=== PATIENT | female | born 1965 | race Caucasian/White ===

== ENCOUNTER 2019-10-25 20:07 | Inpatient (IN) | payer SELFPAY ==
[2019-10-25] MEDS ORDERED: methylPREDNISolone Sod Succ/PF 125 MG/2 ML VIAL ONE (21:50)
[2019-10-26 00:03] LABS: Troponin I 0.038 ng/mL (< 0.028)
[2019-10-26 00:14] VITALS: BMI 43.2
[2019-10-26] MEDS ORDERED: Lactated Ringer's 1,000 ML IV SCH (00:30)
[2019-10-26] MEDS ORDERED: Labetalol HCl 100 MG/20 ML VIAL SLOW IVP PRN (02:29)
[2019-10-26] MEDS ORDERED: Calcium Carbonate 500 MG ChewTAB PO PRN (02:29)
[2019-10-26] MEDS ORDERED: Ondansetron ODT 4 MG TAB PO PRN (02:29)
[2019-10-26] MEDS ORDERED: Acetaminophen 500 MG TAB PO PRN (02:29)
--- NOTE | 2019-10-26 03:15 | HP ---
PRIMARY CARE PROVIDER: [facility] [place], [place]. CHIEF COMPLAINT: Palpitations and shortness of breath. HISTORY OF PRESENT ILLNESS: This is a 54-year-old female, who initially presented to initially presented to [facility] complaining of several-day history of cough, congestion, shortness of breath and palpitations. The patient denied any recent trauma, injury, exposure history, documented fever, chills or cough. The patient felt her heart racing with palpitations and became concerned with associated shortness of breath. The patient did admit to some chest pain rated 4/10 without radiation to the jaw or left arm. In the emergency room, the patient underwent general evaluation including telemetry monitoring showing atrial fibrillation with rapid ventricular response. The patient received diltiazem IV push in addition to diltiazem infusion and Lovenox 1 mg/kg. The patient converted to sinus mechanism with diltiazem treatment with current sinus mechanism noted. The patient was also noted with mild low-grade fever up to 100.2 degrees Fahrenheit. The patient received IV Levaquin and Solu-Medrol in addition to bronchodilator therapy with DuoNebs. PAST MEDICAL HISTORY: 1. Chronic obstructive pulmonary disease. 2. Tobacco abuse. 3. Hypertension. 4. History of TIA. 5. Hepatitis B. 6. Hepatitis C, treated. 7. Morbid obesity. PAST SURGICAL HISTORY: 1. Status post liver biopsy x3. 2. Status post right breast debridement after spider bite. 3. Status post hysterectomy. 4. Status post cardiac catheterization. PAST PSYCHIATRIC HISTORY: Anxiety, depression, PTSD and panic disorder. CURRENT MEDICATIONS: Albuterol 90 mcg inhaled q.6 hours p.r.n. ALLERGIES: NO KNOWN DRUG ALLERGIES. FAMILY HISTORY: Positive for hypertension and coronary artery disease. SOCIAL HISTORY: Resides in [place], [place] with her spouse. Accompanied by her daughter in the hospital. Remote tobacco use quitting less than 10 years prior to this evaluation. No alcohol or illicit drug use. Remote history of marijuana use. REVIEW OF SYSTEMS: CONSTITUTIONAL: Negative for weight loss or gain, ability to conduct usual activities. SKIN: Negative for rash, itching. EYES: Negative for double vision, pain. ENT/MOUTH: Negative for nose bleeding, neck stiffness, pain, tenderness. CARDIOVASCULAR: Negative for palpitations, dyspnea on exertion, orthopnea. RESPIRATORY: Negative for shortness of breath, wheezing, cough, hemoptysis, fever or night sweats. GASTROINTESTINAL: Negative for poor appetite, abdominal pain, heartburn, nausea, vomiting, constipation, or diarrhea. GENITOURINARY: Negative for urgency, frequency, dysuria, nocturia. MUSCULOSKELETAL: Negative for pain, swelling. NEUROLOGIC/PSYCHIATRIC: Negative for anxiety, depression. ALLERGY/IMMUNOLOGIC: Negative for skin rash, bleeding tendency. Otherwise negative except as stated per HPI. PHYSICAL EXAMINATION: VITAL SIGNS: On admission, blood pressure 142/63, pulse 55, respiratory rate 18, temperature 99.4 degrees Fahrenheit with a T-max of 100.2 degrees Fahrenheit. GENERAL APPEARANCE: This is a 54-year-old female, alert and oriented x3, pleasant, responsive, in no acute distress. HEENT: Pupils are equal, round, reactive to light and accommodation. Extraocular muscles are intact. No scleral icterus. No conjunctival injection. Nares patent. OP is clear. Teeth in fair repair. NECK: Supple. No cervical adenopathy. No thyromegaly. No carotid bruits. No JVD appreciated. Cervical spine with full active and passive range of motion. No meningeal signs noted. CHEST: Diminished breath sounds in the bases bilaterally. CARDIOVASCULAR: S1, S2 without noted murmur, rub, or gallop. ABDOMEN: Obese, soft, nontender, and nondistended. Bowel sounds are positive in all 4 quadrants. There is no hepatosplenomegaly. No abdominal bruits, no rebound or guarding appreciated. EXTREMITIES: Warm and dry with fair turgor. No clubbing, cyanosis, or asymmetric edema appreciated. Pulses palpable distally at the dorsalis pedis, posterior tibial, and popliteal arteries bilaterally. Capillary refill less than 2 seconds. NEUROLOGIC: Cranial nerves 2 through 12 are grossly intact. No focal or lateralizing signs appreciated. PERTINENT LABORATORY AND X-RAY FINDINGS: Sodium 139, potassium 4.5, chloride 104, CO2 of 21, BUN 20, creatinine 1.33, estimated GFR 42, glucose 305, calcium 9.5, creatine kinase 223. Troponin I ranged between 0.015 to 0.038. BNP 110, previously 58.5 on 06/23/2018. TSH 0.27. CBC showed a white blood cell count of 19.5, hemoglobin 12.8, hematocrit 39.8, platelet count 457 with 83% neutrophils. D-dimer less than 0.27. Influenza A and B antigen on 10/25/2019 negative. IMAGIN. Portable chest x-ray dated 10/25/2019 showed no acute cardiopulmonary process. 2. EKG dated 10/25/2019 shows sinus bradycardia with heart rates in the 50s. Normal R-wave progression noted in the precordial leads. Normal axis. No acute ST-T wave changes appreciated. ASSESSMENT/PLAN: 1. Paroxysmal atrial fibrillation with rapid ventricular response. Converted to sinus mechanism after treatment with diltiazem. Check 2D transthoracic echocardiogram for wall motion abnormality and to assess ejection fraction. Consult Cardiology Service for any further recommendations. Continue Lovenox 1 mg/kg subcutaneously q.12 hours. Check free T4 and magnesium level in the a.m. 2. Acute kidney [id number] kidney disease, stage 2. Avoid nephrotoxic agents and limit contrast exposure. 3. Continue intravenous normal saline. Encourage increased free water intake orally. 4. Chronic obstructive pulmonary disease, stable currently. No current evidence to suggest acute exacerbation. Continue albuterol nebulized solution q.4 hours p.r.n. oxygen as needed to maintain O2 saturation is greater than or equal to 90%. 5. Febrile episode, exact etiology unclear. Check urinalysis to rule out infectious process. Serial CBC monitoring. 6. Prophylaxis. Sequential compression devices while in bed. Pepcid 20 mg p.o. b.i.d. CODE STATUS: Full. Surrogate medical decision maker is the patient's spouse. In this dictation present coverage in. Job ID: [id number]
[2019-10-26 03:41] LABS: Anion Gap 14 mmol/L (10-20); BUN (Urea Nitrogen) 23 mg/dL (9.8-20.1); Calc. Creatinine Clearance 105 mL/min (70-130); Calcium 8.7 mg/dL (7.8-10.44); Carbon Dioxide 25 mmol/L (22-29); Chloride 101 mmol/L (98-107); Estimated GFR-MDRD 47; Glucose 369 mg/dL (70-105); Magnesium 2.1 mg/dL (1.6-2.6); Potassium 4.8 mmol/L (3.5-5.1); Sodium 135 mmol/L (136-145)
[2019-10-26 03:47] LABS: Band 5 % (5-11); Hemoglobin 12.2 g/dL (12.0-16.0); Lymphocytes 10 % (21-51); MDiff Complete? YES; Mean Corpuscular HGB CONC 33.8 g/dL (32.0-36.0); Mean Corpuscular Hemoglobin 31.5 pg (27.0-31.0); Mean Corpuscular Volume 93.3 fL (78.0-98.0); Mean Platelet Volume 8.9 fL (7.4-10.4); Monocytes 5 % (0-10); Neutrophil 80 % (42-75); Platelet Count 332 thou/uL (130-400); Platelet Morphology Comment Appears Adequate; RBC Distribution Width 12.3 % (11.5-14.5); RBC Morphology Normal; Red Blood Cell (RBC) Count 3.86 mill/uL (4.20-5.40); White Blood Cell (WBC) Count 15.4 thou/uL (4.8-10.8)
[2019-10-26 03:54] LABS: Troponin I 0.021 ng/mL (< 0.028)
[2019-10-26 06:01] LABS: Bacteria/HPF None Seen HPF (None Seen); Bilirubin Negative (Negative); Blood, Urine Trace (Negative); Clarity Clear (Clear); Glucose, Urine (Dipstick) Greater than 1000 mg/dL (Negative); Leukocyte Negative Leu/uL (Negative); Nitrite Negative (Negative); Protein, Urine (Dipstick) Negative (Neg-Trace); RBC/HPF 0-3 HPF (0-3); Squamous Epithelial 0-3 HPF (0-3); Urobilinogen Normal mg/dL (Less than 2); WBC/HPF None Seen HPF (0-3)
[2019-10-26] MEDS ORDERED: predniSONE 50 MG TAB PO SCH (08:00)
[2019-10-26] MEDS: Albuterol Sulfate 1.25 MG/3 ML NEB NEB SCH ×3 (08:17→22:55)
[2019-10-26] MEDS ORDERED: FLU VACC QS2019-20(6MOS UP)/PF 60 MCG/0.5 ML SYRINGE IM ONE (09:00)
[2019-10-26] MEDS ORDERED: Enoxaparin Sodium 100 MG/ML SYRINGE SC SCH (09:00)
[2019-10-26] MEDS ORDERED: Enoxaparin Sodium 30 MG/0.3 ML SYRINGE SC SCH (09:00)
[2019-10-26] MEDS: Aspirin 81 mg Enteric Coated Tablet PO SCH (09:18)
[2019-10-26] MEDS: Famotidine 20 MG TAB PO SCH ×2 (09:18→21:19)
[2019-10-26] MEDS: Ibuprofen 600 MG TAB PO PRN ×2 (09:54→21:19)
[2019-10-26] MEDS: Ondansetron PF 4 MG/2 ML Vial IVP PRN ×2 (09:54→18:04)
[2019-10-26] MEDS ORDERED: Ketorolac Tromethamine 30 MG/ML VIAL IVP SCH (13:57)
--- NOTE | 2019-10-26 15:50 | CON ---
DATE OF CONSULTATION: HISTORY OF PRESENT ILLNESS: A 54-year-old female presented to [facility] with a complaint of palpitations and shortness of breath that have been increasingly worse over the past few days. In the outside emergency department , she was found to be in atrial fibrillation with RVR. This resolved with diltiazem and she has been in sinus rhythm since then. She now reports feeling back to baseline. She denies any chest pain, shortness of breath, difficulty breathing or heart palpitations. She denies any lower extremity edema. She notes a history of heart palpitations nearly daily for many years, perhaps even up to 9 years. She in the past had undergone some evaluation, but this was years ago. She has since lost insurance coverage and is not on any home medications. Her hypertension is currently untreated as well. PAST MEDICAL HISTORY: COPD, hypertension, history of multiple TIAs, CKD stage 2 , hepatitis B, hepatitis C treated. SURGICAL HISTORY: Liver biopsy, right breast debridement, thyroid ablation of some type, hysterectomy, anxiety, depression, and PTSD. ALLERGIES: SHRIMP. FAMILY HISTORY: Coronary artery disease in mother, father, and multiple siblings. Mother of CHF. SOCIAL HISTORY: The patient quit smoking 8 years ago. Forty year history of smoking. Denies alcohol or drug use. LABORATORY DATA: Evaluation includes sodium 135, potassium 4.8, chloride 103, creatinine 1.2, glucose 369, troponin 0.021, BNP 110, TSH 0.2695, free T4 of 0.94. REVIEW OF SYSTEMS: As above and otherwise reviewed and negative. PHYSICAL EXAMINATION: VITAL SIGNS: Temperature 97.6, pulse 55, respirations 12, O2 saturation 96% on 2 L nasal cannula, blood pressure 179/81. GENERAL: Obese woman lying in bed, in no acute distress. HEENT: Normocephalic, atraumatic. CARDIAC: Regular rate and rhythm, no murmur. LUNGS: Mild wheezing. EXTREMITIES: No cyanosis or lower extremity edema. ASSESSMENT AND PLAN: 1. Paroxysmal atrial fibrillation, the patient now in sinus rhythm with rate 50s to 60s. We will start digoxin daily. Echocardiogram is ordered and pending for further evaluation. Discussed anticoagulation and indication for that with the patient. It is a difficult situation as the patient is uninsured and has limited resources. Warfarin would be most accessible, however, unsure if the patient would be able to reliably follow up with INR checks. She currently does not have a primary care physician, though she says she previously was seen at [facility] in [place]. Additionally discussed rate control medications. Discussed the risks and benefits of these medications. 2. Subclinical hyperthyroidism. 3. Hypertension. We will continue to monitor. Considering the patient's borderline bradycardia, we will use caution with rate control medications. 4. The patient was seen and examined with Dr. Dsouza and he is in agreement with plan as noted above. Job ID: [id number] [facility] CENTERAkshat
[2019-10-26] MEDS ORDERED: SUMAtriptan Succinate 6 MG/0.5 ML VIAL SC SCH (17:15)
[2019-10-26] MEDS: Insulin Regular 300 UNITS/3 ML VIAL SC SCH (18:06)
--- NOTE | 2019-10-26 19:10 | CON ---
DATE OF CONSULTATION: REASON FOR CONSULTATION: Atrial fibrillation. HISTORY OF PRESENT ILLNESS: Please see Mela Longo's full consultation for details. Briefly, Ms. Anderson recently presented with atrial fibrillation. This is at an outlying facility. She is converted to sinus rhythm. She does state she has intermittent palpitations on every other day basis. She also has sleep apnea but is untreated. She also has a history of hypertension. PHYSICAL EXAMINATION: VITAL SIGNS: Blood pressure 147/75, pulse 72, temperature 97.8. GENERAL: She is morbidly obese. NEUROLOGIC: The patient is alert and oriented x3 with no focal neurologic deficits. HEENT: Sclerae without icterus. Mouth has moist mucous membranes with normal pallor. NECK: No JVD. Carotid upstroke brisk. No bruits bilaterally. LUNGS: Clear to auscultation with unlabored respirations. BACK: No scoliosis or kyphosis. CARDIAC: Regular rate and rhythm with normal S1 and S2. No S3 or S4 noted. No significant rubs, murmurs, thrills, or gallops noted throughout the precordium. PMI is not displaced. There is no parasternal heave. ABDOMEN: Soft, nontender, nondistended. No peritoneal signs present. No hepatosplenomegaly. No abnormal striae. EXTREMITIES: 2+ femoral and 2+ dorsalis pedis pulses. No cyanosis, clubbing, or edema. SKIN: No gross abnormalities. PERTINENT LABORATORY DATA: Hemoglobin 12.2, creatinine 1.2. IMPRESSION: 1. Paroxysmal atrial fibrillation, one documented episode. 2. Sleep apnea. 3. Palpitations. RECOMMENDATIONS: I had a long discussion with Monica about how to proceed. She may certainly benefit from anticoagulation therapy although this was her first episode. ?TIA history. Discuss Coumadin versus novel oral anticoagulation therapy vs asa. She states she has financial limitations given no insurance. She is working with social service agency director. She will ultimately benefit from Multaq in addition to Eliquis vs ASA and EVR. Her CHADS-VASc score is greater than 2 given history of hypertension, female, and previous ?TIAs. We will add digoxin. We will hold calcium channel blockade due to heart rate in the 50s. Job ID: [id number] [facility]
[2019-10-26] MEDS: Insulin Glargine 30 UNITS in Pre-Filled Syringe SC SCH (21:19)
[2019-10-27 05:13] LABS: Anion Gap 12 mmol/L (10-20); BUN (Urea Nitrogen) 25 mg/dL (9.8-20.1); Calc. Creatinine Clearance 126 mL/min (70-130); Calcium 8.6 mg/dL (7.8-10.44); Carbon Dioxide 27 mmol/L (22-29); Chloride 103 mmol/L (98-107); Estimated GFR-MDRD 58; Glucose 131 mg/dL (70-105); Magnesium 2.3 mg/dL (1.6-2.6); Sodium 138 mmol/L (136-145)
[2019-10-27] MEDS: Albuterol Sulfate 1.25 MG/3 ML NEB NEB SCH ×3 (07:21→22:13)
[2019-10-27] MEDS: Aspirin 81 mg Enteric Coated Tablet PO SCH (08:06)
[2019-10-27] MEDS: Famotidine 20 MG TAB PO SCH ×2 (08:06→20:57)
[2019-10-27] MEDS: Insulin Regular 300 UNITS/3 ML VIAL SC SCH ×3 (08:51→17:46)
[2019-10-27] MEDS: Digoxin 0.125 MG TAB PO SCH (10:03)
[2019-10-27] MEDS: Ibuprofen 600 MG TAB PO PRN ×2 (10:07→19:44)
[2019-10-27] MEDS: Ondansetron PF 4 MG/2 ML Vial IVP PRN ×3 (10:10→21:27)
--- NOTE | 2019-10-27 15:16 | PDOC.CPN ---
- Subjective Date: 10/27/19 Time: 14:35 - Review of Systems General: denies: fever/chills, weight/appetite/sleep changes, night sweats, fatigue Respiratory: reports: cough, shortness of breath Cardiovascular: reports: chest pain Gastrointestinal: denies: nausea, vomiting, diarrhea, constipation, abd pain, GI bleeding Musculoskeletal: denies: pain, tenderness, stiffness, swelling, arthritis/ arthralgias Neurological: denies: numbness, syncope, seizure, weakness - Objective Allergies/Adverse Reactions: Allergies Allergy/AdvReac Type Severity Reaction Status Date / Time shrimp Allergy Verified 10/26/19 00:10 Visit Medications: Current Medications Albuterol Sulfate (Albuterol Sulfate) 1.25 mg NEB [id number] [facility] Last Admin: 10/27/19 14:39 Dose: 1.25 mg Aspirin (Ecotrin) 81 mg PO DAILY [facility] Last Admin: 10/27/19 08:06 Dose: 81 mg Calcium Carbonate (Tums) 1,000 mg PO Q4H PRN PRN Reason: Heartburn or Indigestion Digoxin (Lanoxin) 0.125 mg PO DAILY [facility] Last Admin: 10/27/19 10:03 Dose: Not Given Famotidine (Pepcid) 20 mg PO BID [facility] Last Admin: 10/27/19 08:06 Dose: 20 mg Hydralazine HCl (Apresoline) 10 mg SLOW IVP Q4H PRN PRN Reason: SBP > 180 and HR < 70 Insulin Glargine 30 units/ (Miscellaneous Medication) 0.3 mls @ 0 mls/hr SC [facility] Last Admin: 10/26/19 21:19 Dose: 0.3 mls Ibuprofen (Motrin) 600 mg PO Q6H PRN PRN Reason: Mild Pain (1-3) Last Admin: 10/27/19 10:07 Dose: 600 mg Insulin Human Regular (Humulin R) 10 units SC [facility] Last Admin: 10/27/19 13:25 Dose: Not Given Insulin Human Regular (Humulin R) 0 units SC .MILD SLIDING SCALE PRN PRN Reason: Mild Correctional Scale Labetalol HCl (Normodyne) 20 mg SLOW IVP Q4H PRN PRN Reason: SBP > 180 and HR >/= 70 Ondansetron HCl (Zofran Odt) 4 mg PO Q6H PRN PRN Reason: Nausea/Vomiting Ondansetron HCl (Zofran) 4 mg IVP Q6H PRN PRN Reason: Nausea/Vomiting Last Admin: 10/27/19 15:00 Dose: 4 mg Vital Signs & Weight: Vital Signs Temp Pulse Resp BP BP Pulse Ox 10/27/19 14:55 98.2 F 65 18 163/72 H 97 10/27/19 14:39 64 14 10/27/19 11:38 97.6 F 58 L 17 155/89 H 98 10/27/19 10:03 51 L 10/27/19 08:51 51 L 143/90 H 10/27/19 07:50 97.6 F 50 L 18 180/77 H 98 10/27/19 07:24 98 10/27/19 07:21 49 L 16 10/27/19 04:00 97.6 F 49 L 18 153/65 H 98 Weight 276 lb 3.827 oz - Physical Exam General: alert & oriented x3, appears well HEENT: mucus membranes moist Cardiac: regular rate and rhythm Lungs: normal breath sounds Neuro: grossly intact Abdomen: soft, non-tender Extremities: 1+ LE edema Skin: clear Musculoskeletal: no pain - Labs Result Diagrams: 10/26/19 02:58 10/27/19 04:40 Troponin/CKMB Troponin I 0.021 ng/mL (< 0.028) 10/26/19 02:58 - Assessment/Plan Assessment/Plan: 1, Paroxysmal AF 2. History of TIAs 3. New-onset DM 4. CP/KHALIL 5. COPD 6. Probable KENDRA Reviewed previous angio >10 years ago. At the time, normal coronaries, but small vessel improved with nitro. Patient with c/o SOB and KHALIL in recent months. Unsure if related to COPD. Given symptoms and RFs for CAD, will order stress test. Regarding AF, she is in sinus mike 50-55bpm while awake on Digoxin. Short breakthrough AT/AF. Agreeable to ACT, but financial issues. Will start coumadin. Trying to obtain insurance. Needs weight loss/CPAP in the future.
[2019-10-27] MEDS ORDERED: Warfarin Sodium 5 MG TAB PO SCH (17:00)
[2019-10-27 17:20] LABS: Prothrombin Time 13.3 SEC (12.0-14.7)
--- NOTE | 2019-10-27 17:53 | PDOC.HOSPP ---
- Subjective Encounter Date: 10/27/19 Encounter Time: 09:00 Subjective: Pt seen for followup re: PAF. Feels better. - Objective Vital Signs & Weight: Vital Signs (12 hours) Temp Pulse Resp BP BP Pulse Ox 10/27/19 14:55 98.2 F 65 18 163/72 H 97 10/27/19 14:39 64 14 10/27/19 11:38 97.6 F 58 L 17 155/89 H 98 10/27/19 10:03 51 L 10/27/19 08:51 51 L 143/90 H 10/27/19 07:50 97.6 F 50 L 18 180/77 H 98 10/27/19 07:24 98 10/27/19 07:21 49 L 16 Weight Weight 276 lb 3.827 oz I&O: 10/26/19 10/27/19 10/28/19 06:59 06:59 06:59 Intake Total 1200 1200 Output Total 6 Balance 1194 1200 Result Diagrams: 10/26/19 02:58 10/27/19 04:40 Additional Labs: Accuchecks 10/27/19 10/27/19 10/27/19 13:34 11:46 05:43 POC Glucose 107 106 135 H 10/26/19 20:11 POC Glucose 326 H Labs and MARs reviewed by me EKG Reviewed by me: Yes (Tele; NSR) Hospitalist ROS - Review of Systems Cardiovascular: denies: chest pain, palpitations, orthopnea, paroxysmal noc. dyspnea, edema, light headedness Gastrointestinal: denies: nausea, vomiting, abdominal pain, diarrhea, constipation, melena, hematochezia - Medication Medications: Active Medications Generic Name Dose Route Start Last Admin Trade Name Freq PRN Reason Stop Dose Admin Albuterol Sulfate 1.25 mg 10/26/19 07:00 10/27/19 14:39 Albuterol Sulfate NEB 1.25 mg [id number] INEZ Administration Aspirin 81 mg 10/26/19 09:00 10/27/19 08:06 Ecotrin PO 81 mg DAILY INEZ Administration Digoxin 0.125 mg 10/27/19 09:00 10/27/19 10:03 Lanoxin PO Not Given DAILY INEZ Famotidine 20 mg 10/26/19 09:00 10/27/19 08:06 Pepcid PO 20 mg BID INEZ Administration Insulin Glargine 30 units/ 0.3 mls @ 0 mls/hr 10/26/19 21:00 10/26/19 21:19 Miscellaneous Medication SC 0.3 mls HS INEZ Administration Ibuprofen 600 mg 10/26/19 09:33 10/27/19 10:07 Motrin PO 600 mg Q6H PRN Administration Mild Pain (1-3) Insulin Human Regular 10 units 10/26/19 17:00 10/27/19 17:46 Humulin R SC 10 units AC INEZ Administration Ondansetron HCl 4 mg 10/26/19 02:29 10/27/19 15:00 Zofran IVP 4 mg Q6H PRN Administration Nausea/Vomiting Warfarin Sodium 5 mg 10/27/19 17:00 10/27/19 17:04 Coumadin PO 5 mg 1700 INEZ Administration - Exam General - other findings: Morbid obesity Eye: anicteric sclera ENT: moist mucosa Neck: supple Heart: RRR Respiratory: CTAB, no ronchi Gastrointestinal: soft, non-tender Extremities: no cyanosis Skin: no lesions Psychiatric: normal affect, normal behavior Hosp A/P (1) PAF (paroxysmal atrial fibrillation) Code(s): I48.0 - PAROXYSMAL ATRIAL FIBRILLATION Status: Acute (2) DM2 (diabetes mellitus, type 2) Status: Acute (3) HTN (hypertension) Code(s): I10 - ESSENTIAL (PRIMARY) HYPERTENSION Status: Chronic (4) Morbid obesity with BMI of 40.0-44.9, adult Code(s): E66.01 - MORBID (SEVERE) OBESITY DUE TO EXCESS CALORIES; Z68.41 - BODY MASS INDEX (BMI) 40.0-44.9, ADULT Status: Chronic (5) COPD (chronic obstructive pulmonary disease) Status: Chronic - Plan plan discussed w/ family, respiratory therapy, out of bed/ambulate continue warfarin. Continue telemetry monitoring. Continue accuchecks, insulin sliding scale. Continue PRN IV hydralazine.
[2019-10-27] MEDS: hydrALAZINE 20 MG/ML VIAL SLOW IVP PRN (20:56)
[2019-10-27] MEDS: Senokot S 8.6-50 MG TAB PO SCH (20:57)
[2019-10-27] MEDS: Insulin Glargine 30 UNITS in Pre-Filled Syringe SC SCH (20:58)
[2019-10-28 05:02] LABS: #Basophils 0.1 thou/uL (0.0-0.2); #Eosinphils 0.4 thou/uL (0.0-0.7); #Lymphocytes 4.7 thou/uL (1.20-3.40); #Neutrophils 9.2 thou/uL (1.40-6.50); %Basophils 0.8 % (0.0-1.0); %Eosinophils 2.7 % (0.0-10.0); %Lymphocytes 30.8 % (21.0-51.0); %Monocytes 6.3 % (0.0-10.0); %Neutrophils 59.5 % (42.0-75.0); Hemoglobin 12.8 g/dL (12.0-16.0); Mean Corpuscular HGB CONC 32.1 g/dL (32.0-36.0); Mean Corpuscular Hemoglobin 30.4 pg (27.0-31.0); Mean Corpuscular Volume 94.5 fL (78.0-98.0); Mean Platelet Volume 8.4 fL (7.4-10.4); Platelet Count 349 thou/uL (130-400); RBC Distribution Width 12.4 % (11.5-14.5); Red Blood Cell (RBC) Count 4.22 mill/uL (4.20-5.40); White Blood Cell (WBC) Count 15.4 thou/uL (4.8-10.8)
[2019-10-28 05:06] LABS: Prothrombin Time 12.9 SEC (12.0-14.7)
[2019-10-28 05:11] LABS: Hemoglobin A1c 7.7 % (4.0-6.0)
[2019-10-28 05:22] LABS: Anion Gap 11 mmol/L (10-20); BUN (Urea Nitrogen) 20 mg/dL (9.8-20.1); Calc. Creatinine Clearance 126 mL/min (70-130); Calcium 8.6 mg/dL (7.8-10.44); Carbon Dioxide 30 mmol/L (22-29); Chloride 106 mmol/L (98-107); Estimated GFR-MDRD 58; Glucose 116 mg/dL (70-105); Potassium 4.5 mmol/L (3.5-5.1); Sodium 142 mmol/L (136-145)
[2019-10-28] MEDS: Ondansetron PF 4 MG/2 ML Vial IVP PRN (07:42)
[2019-10-28] MEDS: Albuterol Sulfate 1.25 MG/3 ML NEB NEB SCH ×3 (07:44→23:24)
[2019-10-28] MEDS: Aspirin 81 mg Enteric Coated Tablet PO SCH (07:44)
[2019-10-28] MEDS: Famotidine 20 MG TAB PO SCH ×2 (07:45→21:20)
[2019-10-28] MEDS: Senokot S 8.6-50 MG TAB PO SCH ×2 (07:45→21:20)
[2019-10-28] MEDS: Insulin Regular 300 UNITS/3 ML VIAL SC SCH ×3 (07:47→18:35)
--- NOTE | 2019-10-28 09:40 | PDOC.CPN ---
- Subjective Date: 10/28/19 Time: 09:10 Interval history: patient currently in stress lab/evaluated. says she is feeling better. Still SOB , but anxious. - Review of Systems General: denies: fever/chills, weight/appetite/sleep changes, night sweats, fatigue Respiratory: reports: shortness of breath Cardiovascular: reports: chest pain Gastrointestinal: denies: nausea, vomiting, diarrhea, constipation, abd pain, GI bleeding Musculoskeletal: denies: pain, tenderness, stiffness, swelling, arthritis/ arthralgias Neurological: denies: numbness, syncope, seizure, weakness - Objective Allergies/Adverse Reactions: Allergies Allergy/AdvReac Type Severity Reaction Status Date / Time shrimp Allergy Verified 10/26/19 00:10 Visit Medications: Current Medications Albuterol Sulfate (Albuterol Sulfate) 1.25 mg NEB [id number] [facility] Last Admin: 10/28/19 07:44 Dose: Not Given Aspirin (Ecotrin) 81 mg PO DAILY [facility] Last Admin: 10/28/19 07:44 Dose: 81 mg Calcium Carbonate (Tums) 1,000 mg PO Q4H PRN PRN Reason: Heartburn or Indigestion Digoxin (Lanoxin) 0.125 mg PO DAILY [facility] Last Admin: 10/27/19 10:03 Dose: Not Given Famotidine (Pepcid) 20 mg PO BID [facility] Last Admin: 10/28/19 07:45 Dose: 20 mg Hydralazine HCl (Apresoline) 10 mg SLOW IVP Q4H PRN PRN Reason: SBP > 180 and HR < 70 Last Admin: 10/27/19 20:56 Dose: 10 mg Insulin Glargine 30 units/ (Miscellaneous Medication) 0.3 mls @ 0 mls/hr SC [facility] Last Admin: 10/27/19 20:58 Dose: Not Given Ibuprofen (Motrin) 600 mg PO Q6H PRN PRN Reason: Mild Pain (1-3) Last Admin: 10/27/19 19:44 Dose: 600 mg Insulin Human Regular (Humulin R) 10 units SC [facility] Last Admin: 10/28/19 07:47 Dose: Not Given Insulin Human Regular (Humulin R) 0 units SC .MILD SLIDING SCALE PRN PRN Reason: Mild Correctional Scale Labetalol HCl (Normodyne) 20 mg SLOW IVP Q4H PRN PRN Reason: SBP > 180 and HR >/= 70 Miscellaneous Medication (Pharmacy To Dose) 1 each IVPB PRN PRN PRN Reason: Pharmacy to dose Ondansetron HCl (Zofran Odt) 4 mg PO Q6H PRN PRN Reason: Nausea/Vomiting Ondansetron HCl (Zofran) 4 mg IVP Q6H PRN PRN Reason: Nausea/Vomiting Last Admin: 10/28/19 07:42 Dose: 4 mg Senna/Docusate Sodium (Senokot S) 1 tab PO BID [facility] Last Admin: 10/28/19 07:45 Dose: 1 tab Warfarin Sodium (Coumadin) 5 mg PO 1700 [facility] Last Admin: 10/27/19 17:04 Dose: 5 mg Vital Signs & Weight: Vital Signs Temp Pulse Resp BP BP Pulse Ox 10/28/19 06:59 98.1 F 54 L 18 139/82 98 10/28/19 03:14 97.7 F 53 L 14 164/70 H 93 L 10/27/19 23:30 97.9 F 59 L 14 143/63 H 10/27/19 22:13 61 16 99 Weight 276 lb 3.827 oz - Physical Exam General: alert & oriented x3, appears well HEENT: mucus membranes moist Neck: supple neck Cardiac: regular rate and rhythm Lungs: normal breath sounds Neuro: grossly intact Abdomen: soft, no masses Extremities: no cyanosis, no clubbing Skin: clear Musculoskeletal: no pain - Labs Result Diagrams: 10/28/19 04:42 10/28/19 04:42 Troponin/CKMB Troponin I 0.021 ng/mL (< 0.028) 10/26/19 02:58 - Assessment/Plan Assessment/Plan: 1, Paroxysmal AF 2. History of TIAs 3. New-onset DM 4. CP/KHLAIL 5. COPD 6. Probable KENDRA 7. HTN Underwent stress portion of test this morning. Await images. Currently stable. Remained in SR overnight. INR still 1.0 on coumadin. Will add ARB for HTN.
[2019-10-28] MEDS ORDERED: Losartan 25 MG TAB PO SCH ×2 (09:45)
[2019-10-28] MEDS ORDERED: Regadenoson 0.4 MG/5 ML SYRINGE ONE (10:22)
[2019-10-28] MEDS: Digoxin 0.125 MG TAB PO SCH (10:42)
[2019-10-28] MEDS: Ibuprofen 600 MG TAB PO PRN ×2 (10:47→21:20)
--- NOTE | 2019-10-28 11:17 | NM ---
EXAM: Nuclear medicine cardiac perfusion examination with ejection fraction HISTORY: Chest pain. Atrial fibrillation TECHNIQUE: Rest images: 27.0 mCi technetium 99m sestamibi Stress images: 32.4 mCi of technetium 9M sestamibi; Lexiscan COMPARISON: None FINDINGS: Tomographic images: No fixed or reversible perfusion defects. Gated images: Normal wall motion and ejection fraction of 51%. EDV: 143 mL LHR: 0.3 TID: 0.9 IMPRESSION: No evidence of ischemia
[2019-10-28] MEDS: hydrALAZINE 20 MG/ML VIAL SLOW IVP PRN (11:24)
--- NOTE | 2019-10-28 11:58 | CT ---
CT HEAD WITHOUT CONTRAST: INDICATIONS: Stroke protocol. New right sided facial paralysis. FINDINGS: The ventricles have normal size and position. No evidence of intracranial mass or hemorrhage. No evid ence of acute infarct. The paranasal sinuses are clear. IMPRESSION: No acute abnormality. Findings relayed to Dr. Pastor at 11:55 a.m. CODE CR POS: MARITZA
--- NOTE | 2019-10-28 12:28 | CT ---
CTA HEAD WITH CONTRAST: CTA NECK WITH CONTRAST: INDICATIONS: Stroke protocol. Right facial paralysis. TECHNIQUE: Axial tomograms obtained following the angio protocol with multiplanar reconstruction and 3D post pro cessing. FINDINGS: Intracranial internal carotid arteries appear patent and symmetric. Mild atherosclerotic calcificatio n involving the cavernous portions of both ICAs without evidence of significant stenosis. Both middle cerebral arteries are patent and symmetric. Anterior cerebral arteries are patent and symmetric. Basilar artery is patent. communication with the left posterior cerebral. Both posterior cerebrals are patent. IMPRESSION: No evidence of proximal cerebral artery stenosis or occlusion. CTA NECK WITH CONTRAST: INDICATIONS: Stroke protocol. Right facial numbness and paralysis. TECHNIQUE: Axial tomograms obtained following the angio protocol with multiplanar reconstruction and 3D post pro cessing. FINDINGS: No evidence of stenosis at the origin of the arch vessels. Both common carotid arteries appear patent . Mild atherosclerotic calcification at the left bulb. No evidence of stenosis. No significant athero sclerotic change at the right bulb. Both internal carotid arteries are patent with no significant stephani nosis. Both internal carotid arteries are mildly tortuous. There is some slight aneurysmal dilatation of both proximal internal carotid arteries. The diameter o f the proximal right internal carotid artery measures 1.0 cm. The diameter of the proximal left inter nal carotid artery, just beyond the bulb, measures approximately 1.0 cm. Vertebral arteries are patent and symmetric. No soft tissue abnormality identified. IMPRESSION: No evidence of internal carotid artery stenosis. POS: [facility]
[2019-10-28] MEDS ORDERED: Nitroglycerin 2% Ointment 1 INCH/1 GM Packet TOP SCH (12:30)
[2019-10-28] MEDS ORDERED: niCARdipine 25 MG in Sodium Chloride 0.9% 250 ML 240 ML IVPB SCH (13:15)
[2019-10-28 13:24] LABS: Prothrombin Time 12.7 SEC (12.0-14.7)
[2019-10-28] MEDS ORDERED: Esmolol 2,500 MG/250 ML 250 ML ONE (13:24)
[2019-10-28] MEDS ORDERED: Labetalol HCl 100 MG/20 ML VIAL SLOW IVP PRN (13:54)
[2019-10-28] MEDS ORDERED: Iopamidol-370 76% 500 ML 1 ML ONE (13:54)
[2019-10-28] MEDS ORDERED: Communication Order-Pharmacy FS PRN (13:54)
[2019-10-28] MEDS ORDERED: niCARdipine 25 MG in Sodium Chloride 0.9% 250 ML 250 ML IVPB PRN (13:54)
--- NOTE | 2019-10-28 15:48 | PDOC.HOSPP ---
- Subjective Encounter Date: 10/28/19 Encounter Time: 15:51 Subjective: Pt seen for followup re; CVA. Feels better. - Objective Vital Signs & Weight: Vital Signs (12 hours) Temp Pulse Resp BP BP Pulse Ox 10/28/19 14:37 64 16 96 10/28/19 13:45 98 10/28/19 11:24 61 10/28/19 11:19 98 F 61 14 192/88 H 100 10/28/19 06:59 98.1 F 54 L 18 139/82 98 Weight Weight 276 lb 3.827 oz I&O: 10/27/19 10/28/19 10/29/19 06:59 06:59 06:59 Intake Total 1200 1660 Output Total 6 1800 Balance 1194 -140 Result Diagrams: 10/28/19 04:42 10/28/19 04:42 Additional Labs: Accuchecks 10/28/19 10/28/19 10/28/19 11:41 10:57 05:17 POC Glucose 128 H 130 H 103 10/27/19 10/27/19 20:24 17:05 POC Glucose 213 H 137 H Labs and MARs reviewed by me EKG Reviewed by me: Yes (Tele: NSR) Hospitalist ROS - Review of Systems Constitutional: denies: fever, chills, sweats, weakness, malaise Respiratory: denies: cough, shortness of breath, SOB with excertion, pleuritic pain, wheezing Cardiovascular: denies: chest pain, palpitations, orthopnea, paroxysmal noc. dyspnea, edema, light headedness Gastrointestinal: denies: nausea, vomiting, abdominal pain, diarrhea, constipation, melena, hematochezia Musculoskeletal: denies: neck pain, shoulder pain, arm pain, back pain, hand pain, leg pain, foot pain Neurological: reports: weakness, numbness, other (facial droop) - Medication Medications: Active Medications Generic Name Dose Route Start Last Admin Trade Name Freq PRN Reason Stop Dose Admin Albuterol Sulfate 1.25 mg 10/26/19 07:00 10/28/19 14:37 Albuterol Sulfate NEB 1.25 mg [id number] INEZ Administration Digoxin 0.125 mg 10/27/19 09:00 10/28/19 10:42 Lanoxin PO 0.125 mg DAILY INEZ Administration Famotidine 20 mg 10/26/19 09:00 10/28/19 07:45 Pepcid PO 20 mg BID INEZ Administration Insulin Glargine 30 units/ 0.3 mls @ 0 mls/hr 10/26/19 21:00 10/27/19 20:58 Miscellaneous Medication SC Not Given HS INEZ Ibuprofen 600 mg 10/26/19 09:33 10/28/19 10:47 Motrin PO 600 mg Q6H PRN Administration Mild Pain (1-3) Insulin Human Regular 10 units 10/26/19 17:00 10/28/19 14:17 Humulin R SC Not Given AC INEZ Ondansetron HCl 4 mg 10/26/19 02:29 10/28/19 07:42 Zofran IVP 4 mg Q6H PRN Administration Nausea/Vomiting Senna/Docusate Sodium 1 tab 10/27/19 21:00 10/28/19 07:45 Senokot S PO 1 tab BID INEZ Administration - Exam General - other findings: Morbid obesity Eye: anicteric sclera ENT: moist mucosa Neck: supple, symmetric, no JVD, no thyromegaly Heart: RRR, no murmur, no gallops, no rubs Respiratory: CTAB, no wheezes, no rales, no ronchi Gastrointestinal: soft, non-tender, normal bowel sounds, distended Extremities: no cyanosis Neurological: facial droop (right facial droop, right face numbness) Psychiatric: normal affect, normal behavior, A&O x 3 Hosp A/P (1) Ischemic cerebrovascular accident (CVA) Code(s): I63.9 - CEREBRAL INFARCTION, UNSPECIFIED Status: Suspected (2) PAF (paroxysmal atrial fibrillation) Code(s): I48.0 - PAROXYSMAL ATRIAL FIBRILLATION Status: Acute (3) DM2 (diabetes mellitus, type 2) Status: Acute (4) HTN (hypertension) Code(s): I10 - ESSENTIAL (PRIMARY) HYPERTENSION Status: Chronic (5) Morbid obesity with BMI of 40.0-44.9, adult Code(s): E66.01 - MORBID (SEVERE) OBESITY DUE TO EXCESS CALORIES; Z68.41 - BODY MASS INDEX (BMI) 40.0-44.9, ADULT Status: Chronic (6) COPD (chronic obstructive pulmonary disease) Status: Chronic - Plan Pt received tPA, now admitted to CCU for further management. Discussed with neurologist bonding machine tender, pt to be seen by neurology tomorrow. Hold warfarin. Stress test negative. Check MRI brain. Family updated .
[2019-10-28] MEDS: Insulin Glargine 30 UNITS in Pre-Filled Syringe SC SCH (21:47)
--- NOTE | 2019-10-28 23:51 | CON ---
DATE OF CONSULTATION: 10/28/2019 This is 50 minutes of time, of that time, greater than 50% time spent with the patient and/or the patient's unit in the hospital. REASON FOR CONSULTATION: The patient had a stroke. HISTORY OF PRESENT ILLNESS: This patient was originally admitted to the hospital on 10/26/2019 by the Hospitalist Group for evaluation of palpitations and shortness of breath. She was seen in consultation by the Cardiology Group. She was found to have paroxysmal atrial fibrillation. She was actually supposed to go home today and then developed right upper extremity weakness with slurred speech. She was taken for an emergent CT. There was nothing found, but she received tPA and has had resolution of 99% of her weakness. She is in the ICU for a 24-hour watch after receiving tPA. PAST MEDICAL HISTORY: 1. COPD. 2. New onset atrial fibrillation. 3. Tobacco abuse. 4. Hypertension. 5. TIA. 6. Hepatitis B. 7. Hepatitis C which was treated. 8. Obesity. PAST SURGICAL HISTORY: She has had 3 liver biopsies. She has had a right breast debridement after a spider bite, hysterectomy, and cardiac catheterization. PSYCHIATRIC HISTORY: Notable for anxiety, depression, and PTSD. MEDICATIONS: Prior to admission, albuterol. ALLERGIES: NONE. SOCIAL HISTORY: Lives in [place], [place]. Quit smoking about 10 years ago. Used marijuana remotely in the past. Does not consume alcohol. REVIEW OF SYSTEMS: Remarkable for palpitations and stroke symptoms earlier today. Otherwise, 12-point review of systems negative. PHYSICAL EXAMINATION: VITAL SIGNS: Temperature 98, pulse 64, respirations 16, O2 saturation 98%, and blood pressure 173/90. GENERAL: She is awake and in no distress. NEUROLOGICALLY: I detect no focal weakness in arms or legs. Her speech is appropriate. HEENT: Otherwise, unremarkable. NECK: No adenopathy or JVD. CHEST: Clear to auscultation. CARDIAC: S1 and S2, now in sinus rhythm. ABDOMEN: Soft, obese, nontender, and nondistended. EXTREMITIES: No clubbing, cyanosis, or edema. LABORATORY DATA: White blood cell count 15.4, hematocrit 39.9, and platelet count 349. Sodium 142, potassium 4.5, chloride 106, CO2 of 30, BUN 20, creatinine 1.0, and glucose 116. Hemoglobin A1c is 7.7. ASSESSMENT: 1. Stroke, now post tPA with resolution of symptoms. 2. Paroxysmal atrial fibrillation, now sinus rhythm. 3. Underlying chronic obstructive pulmonary disease. PLAN: Basically, the patient needs to be monitored in the CCU for about 24 hours. She will probably need some type of long-term anticoagulation both for atrial fibrillation and stroke prophylaxis. She will also likely need to be on aspirin. I would suggest Neurology consultation. There are no further Pulmonary/Critical Care recommendations at this time. Job ID: [id number]
--- NOTE | 2019-10-29 07:06 | PDOC.CPN ---
- Subjective Date: 10/29/19 Time: 10:34 Interval history: Doing much better this AM. CVA symptoms have resolved after TPA - Objective Allergies/Adverse Reactions: Allergies Allergy/AdvReac Type Severity Reaction Status Date / Time shrimp Allergy Verified 10/26/19 00:10 Visit Medications: Current Medications Albuterol Sulfate (Albuterol Sulfate) 1.25 mg NEB [id number] [facility] Last Admin: 10/28/19 23:24 Dose: 1.25 mg Calcium Carbonate (Tums) 1,000 mg PO Q4H PRN PRN Reason: Heartburn or Indigestion Digoxin (Lanoxin) 0.125 mg PO DAILY [facility] Last Admin: 10/28/19 10:42 Dose: 0.125 mg Famotidine (Pepcid) 20 mg PO BID [facility] Last Admin: 10/28/19 21:20 Dose: 20 mg Hydralazine HCl (Apresoline) 10 mg SLOW IVP Q4H PRN PRN Reason: SBP > 180 or DBP > 105 Insulin Glargine 30 units/ (Miscellaneous Medication) 0.3 mls @ 0 mls/hr SC [facility] Last Admin: 10/28/19 21:47 Dose: Not Given Nicardipine HCl 25 mg/ Sodium (Chloride) 260 mls @ 0 mls/hr IVPB INF PRN; Protocol PRN Reason: SBP > 180 or DBP > 105 Ibuprofen (Motrin) 600 mg PO Q6H PRN PRN Reason: Mild Pain (1-3) Last Admin: 10/28/19 21:20 Dose: 600 mg Insulin Human Regular (Humulin R) 10 units SC AC [facility] Last Admin: 10/28/19 18:35 Dose: 10 units Insulin Human Regular (Humulin R) 0 units SC .MILD SLIDING SCALE PRN PRN Reason: Mild Correctional Scale Labetalol HCl (Normodyne) 10 mg SLOW IVP Q10MIN PRN PRN Reason: SBP > 180 or DBP > 105 Losartan Potassium (Cozaar) 50 mg PO DAILY [facility] Miscellaneous Information (Communication Order-Pharmacy) 1 each FS ONE PRN PRN Reason: [place] Stop: 10/29/19 13:55 Miscellaneous Medication (Pharmacy To Dose) 1 each IVPB PRN PRN PRN Reason: Pharmacy to dose Ondansetron HCl (Zofran Odt) 4 mg PO Q6H PRN PRN Reason: Nausea/Vomiting Ondansetron HCl (Zofran) 4 mg IVP Q6H PRN PRN Reason: Nausea/Vomiting Last Admin: 10/28/19 07:42 Dose: 4 mg Senna/Docusate Sodium (Senokot S) 1 tab PO BID [facility] Last Admin: 10/28/19 21:20 Dose: 1 tab Sodium Chloride (Flush - Normal Saline) 10 ml IVF Q12HR [facility] Last Admin: 10/28/19 21:21 Dose: 10 ml Sodium Chloride (Flush - Normal Saline) 10 ml IVF PRN PRN PRN Reason: Saline Flush Vital Signs & Weight: Vital Signs Temp Pulse Ox 10/29/19 00:00 98.3 F 10/28/19 23:25 99 10/28/19 23:24 99 10/28/19 20:00 98.5 F 95 Weight 276 lb 3.827 oz - Physical Exam General: alert & oriented x3 Cardiac: no murmur, regular rate, regular rhythm Lungs: normal exam Abdomen: soft, non-tender Extremities: no edema - Labs Result Diagrams: 10/28/19 04:42 10/28/19 04:42 Troponin/CKMB Troponin I 0.021 ng/mL (< 0.028) 10/26/19 02:58 - Telemetry Sinus rhythms and dysrhythmias: sinus rhythm - Assessment/Plan Assessment/Plan: CVA afib KENDRA Obesity Symptoms have resolved. Pt wiwth CVA yesterday and received TPA Continue tpa protocol Discussed coumadin vs NOAC. Pt would like tog home. Recommend NOAC. We can supple samples for several weeks and will do so. Pt and family understand it is not [facility]. They will attempt at getting additional coverage. We can always resort to coumadin if needed Can use coumadin vs NOAC (can provide samples if needed short term but not [facility])
[2019-10-29] MEDS: Albuterol Sulfate 1.25 MG/3 ML NEB NEB SCH ×3 (07:44→22:36)
--- NOTE | 2019-10-29 08:09 | CT ---
CT BRAIN WITHOUT CONTRAST: HISTORY: Status post tPA for stroke. COMPARISON: 10/28/2019 TECHNIQUE: Multiple contiguous axial images were obtained in a CT of the brain without contrast. FINDINGS: The brain is normal in morphology and attenuation without focal lesions or confluent areas of infarct ion. There is no evidence of hydrocephalus, intracranial hemorrhage or extraaxial fluid collection. The calvarium and overlying soft tissues are unremarkable. The visualized paranasal sinuses and masto id air cells are well aerated. IMPRESSION: No evidence of acute intracranial abnormality. POS: [facility]
[2019-10-29] MEDS: Ibuprofen 600 MG TAB PO PRN ×2 (08:21→16:16)
[2019-10-29] MEDS: Digoxin 0.125 MG TAB PO SCH (08:21)
[2019-10-29] MEDS: Losartan 25 MG TAB PO SCH (08:22)
[2019-10-29] MEDS: Senokot S 8.6-50 MG TAB PO SCH ×2 (08:22→21:09)
[2019-10-29] MEDS: Famotidine 20 MG TAB PO SCH ×2 (08:22→21:09)
[2019-10-29] MEDS: Insulin Regular 300 UNITS/3 ML VIAL SC SCH ×3 (08:23→19:38)
--- NOTE | 2019-10-29 08:30 | PRG ---
DATE OF SERVICE: 10/29/2019 SUBJECTIVE: Ms. Anderson is doing well without complaints. OBJECTIVE: VITAL SIGNS: Temperature 98.3, pulse 56, blood pressure 147/85, O2 saturation 94%. HEENT: Unremarkable. NECK: No adenopathy or JVD. CHEST: Clear. CARDIAC: S1 and S2. Regular. ABDOMEN: Soft. EXTREMITIES: No edema. NEUROLOGIC: Shows no weakness on either side. She has no facial droop. LABORATORY DATA: No labs were done today. ASSESSMENT: Status post stroke. She got tPA and has had resolved right-sided weakness and right-sided facial droop. PLAN: When her 24 hours are up, she can be transferred out to the stroke unit. She seems to be doing very well. No further Pulmonary recommendations. We will sign off. Job ID: [id number]
[2019-10-29] MEDS: hydrALAZINE 20 MG/ML VIAL SLOW IVP PRN (09:36)
--- NOTE | 2019-10-29 11:27 | PDOC.HOSPP ---
- Subjective Encounter Date: 10/29/19 Encounter Time: 11:26 Subjective: Ms. Anderson was seen today in follow-up of AFIB and CVA. She had right sided weakness yesterday, but this has completely resolved. She notes some upper abdominal discomfort, but otherwise ok. - Objective Vital Signs & Weight: Vital Signs (12 hours) Temp Pulse Resp Pulse Ox 10/29/19 11:09 71 10/29/19 11:00 98.6 F 10/29/19 09:36 70 10/29/19 08:21 66 10/29/19 07:45 97 10/29/19 07:44 57 L 15 97 10/29/19 07:00 98.2 F 10/29/19 04:00 98.4 F 10/29/19 00:00 98.3 F Weight Weight 278 lb 3.574 oz Most Recent Monitor Data Heart Rate from ECG 70 NIBP 193/81 NIBP BP-Mean 118 Respiration from ECG 16 SpO2 95 I&O: 10/28/19 10/29/19 10/30/19 06:59 06:59 06:59 Intake Total 1660 1080 240 Output Total 1800 2100 100 Balance -140 -1020 140 Result Diagrams: 10/28/19 04:42 10/28/19 04:42 Additional Labs: Accuchecks 10/29/19 10/28/19 10/28/19 06:14 23:43 21:21 POC Glucose 137 H 148 H 102 10/28/19 10/28/19 10/28/19 18:23 11:41 10:57 POC Glucose 193 H 128 H 130 H Hospitalist ROS - Medication Medications: Active Medications Generic Name Dose Route Start Last Admin Trade Name Freq PRN Reason Stop Dose Admin Albuterol Sulfate 1.25 mg 10/26/19 07:00 10/29/19 07:44 Albuterol Sulfate NEB 1.25 mg [id number] INEZ Administration Digoxin 0.125 mg 10/27/19 09:00 10/29/19 08:21 Lanoxin PO 0.125 mg DAILY INEZ Administration Famotidine 20 mg 10/26/19 09:00 10/29/19 08:22 Pepcid PO 20 mg BID INEZ Administration Hydralazine HCl 10 mg 10/28/19 13:54 10/29/19 09:36 Apresoline SLOW IVP 10 mg Q4H PRN Administration SBP > 180 or DBP > 105 Insulin Glargine 30 units/ 0.3 mls @ 0 mls/hr 10/26/19 21:00 10/28/19 21:47 Miscellaneous Medication SC Not Given HS INEZ Ibuprofen 600 mg 10/26/19 09:33 10/29/19 08:21 Motrin PO 600 mg Q6H PRN Administration Mild Pain (1-3) Insulin Human Regular 10 units 10/26/19 17:00 10/29/19 08:23 Humulin R SC 10 units AC INEZ Administration Labetalol HCl 10 mg 10/28/19 13:54 10/29/19 11:09 Normodyne SLOW IVP 10 mg Q10MIN PRN Administration SBP > 180 or DBP > 105 Losartan Potassium 50 mg 10/29/19 09:00 10/29/19 08:22 Cozaar PO 50 mg DAILY INEZ Administration Ondansetron HCl 4 mg 10/26/19 02:29 10/28/19 07:42 Zofran IVP 4 mg Q6H PRN Administration Nausea/Vomiting Senna/Docusate Sodium 1 tab 10/27/19 21:00 10/29/19 08:22 Senokot S PO 1 tab BID INEZ Administration Sodium Chloride 10 ml 10/28/19 21:00 10/29/19 08:22 Flush - Normal Saline IVF 10 ml Q12HR INEZ Administration - Exam Eye: PERRL Heart: RRR, no murmur, no gallops, no rubs, normal peripheral pulses Respiratory: CTAB, no wheezes, no rales, no ronchi, normal chest expansion Gastrointestinal: soft, non-distended, normal bowel sounds, no palpable masses, no hepatomegaly Extremities: no cyanosis, no clubbing, no edema Neurological: no focal deficits Psychiatric: normal affect, normal behavior, A&O x 3 Hosp A/P (1) Acute CVA (cerebrovascular accident) Code(s): I63.9 - CEREBRAL INFARCTION, UNSPECIFIED Status: Acute (2) PAF (paroxysmal atrial fibrillation) Code(s): I48.0 - PAROXYSMAL ATRIAL FIBRILLATION Status: Acute (3) DM2 (diabetes mellitus, type 2) Status: Acute (4) COPD (chronic obstructive pulmonary disease) Status: Chronic (5) HTN (hypertension) Code(s): I10 - ESSENTIAL (PRIMARY) HYPERTENSION Status: Chronic (6) Morbid obesity with BMI of 40.0-44.9, adult Code(s): E66.01 - MORBID (SEVERE) OBESITY DUE TO EXCESS CALORIES; Z68.41 - BODY MASS INDEX (BMI) 40.0-44.9, ADULT Status: Chronic - Plan * Acute CVA post TPA- her deficits have completely resolved * Continue the post tPA protocol * HTN- blood pressure is elevated- Losartan was started- may need to add HTCZ. and continue prn medications as well * AFIB- she is currently in sinus- will start a DOAC later this afternoon * Abdominal discomfort- likely muscle strain from coughing * COPD- stable * DM- blood glucose is stable
[2019-10-29] MEDS: Insulin Regular 300 UNITS/3 ML VIAL SC PRN (11:39)
--- NOTE | 2019-10-29 16:01 | MRI ---
EXAM: MRI of the brain without contrast HISTORY: Right-sided facial drooping and weakness that resolved with TPA COMPARISON: CT brain 10/29/2019 TECHNIQUE: Multiplanar multisequence MR images were obtained of the brain without IV contrast. FINDINGS: The brain demonstrates normal signal intensity on all obtained sequences. No restricted diffusion. No hydronephrosis. No extra-axial fluid collection or intracranial hemorrhage. The expected flow voids are present. Corpus callosum, pituitary, and craniocervical junction are within normal limits. The calvarium and overlying soft tissues are unremarkable. The paranasal sinuses and mastoid air cells are well aerated. IMPRESSION: No evidence of acute intracranial abnormality.
--- NOTE | 2019-10-29 19:06 | EKG ---
Test Reason : Blood Pressure : / mmHG Vent. Rate : 062 BPM Atrial Rate : 062 BPM P-R Int : 148 ms QRS Dur : 078 ms QT Int : 422 ms P-R-T Axes : 054 -07 021 degrees QTc Int : 428 ms Normal sinus rhythm Borderline ECG When compared with ECG of 25-OCT-2019 20:58, (Unconfirmed) No significant change was found Confirmed by KENDAL OSHEA, SLandon ([id number]) on 10/29/2019 7:05:35 PM Referred By: JANA Confirmed By:DR. Humphrey EDMONDS MD
[2019-10-29] MEDS: Insulin Glargine 30 UNITS in Pre-Filled Syringe SC SCH (21:09)
[2019-10-30 05:37] LABS: Cardiac Risk 2.9 (Less than 4.5)
[2019-10-30] MEDS: Insulin Regular 300 UNITS/3 ML VIAL SC PRN (06:46)
[2019-10-30] MEDS: Albuterol Sulfate 1.25 MG/3 ML NEB NEB SCH ×3 (07:45→22:50)
--- NOTE | 2019-10-30 08:09 | PDOC.CPN ---
- Subjective Date: 10/30/19 Time: 13:37 Interval history: Doing better. Symptoms have resolved. Pt would like to go home soon - Objective Allergies/Adverse Reactions: Allergies Allergy/AdvReac Type Severity Reaction Status Date / Time shrimp Allergy Verified 10/26/19 00:10 Visit Medications: Current Medications Albuterol Sulfate (Albuterol Sulfate) 1.25 mg NEB [id number] [facility] Last Admin: 10/30/19 07:45 Dose: 1.25 mg Calcium Carbonate (Tums) 1,000 mg PO Q4H PRN PRN Reason: Heartburn or Indigestion Digoxin (Lanoxin) 0.125 mg PO DAILY [facility] Last Admin: 10/29/19 08:21 Dose: 0.125 mg Famotidine (Pepcid) 20 mg PO BID [facility] Last Admin: 10/29/19 21:09 Dose: 20 mg Hydralazine HCl (Apresoline) 10 mg SLOW IVP Q4H PRN PRN Reason: SBP > 180 or DBP > 105 Last Admin: 10/29/19 09:36 Dose: 10 mg Insulin Glargine 30 units/ (Miscellaneous Medication) 0.3 mls @ 0 mls/hr SC HS [facility] Last Admin: 10/29/19 21:09 Dose: 0.3 mls Nicardipine HCl 25 mg/ Sodium (Chloride) 260 mls @ 0 mls/hr IVPB INF PRN; Protocol PRN Reason: SBP > 180 or DBP > 105 Ibuprofen (Motrin) 600 mg PO Q6H PRN PRN Reason: Mild Pain (1-3) Last Admin: 10/29/19 16:16 Dose: 600 mg Insulin Human Regular (Humulin R) 10 units SC AC [facility] Last Admin: 10/29/19 19:38 Dose: Not Given Insulin Human Regular (Humulin R) 0 units SC .MILD SLIDING SCALE PRN PRN Reason: Mild Correctional Scale Last Admin: 10/30/19 06:46 Dose: 2 unit Labetalol HCl (Normodyne) 10 mg SLOW IVP Q10MIN PRN PRN Reason: SBP > 180 or DBP > 105 Last Admin: 10/29/19 11:09 Dose: 10 mg Losartan Potassium (Cozaar) 50 mg PO DAILY [facility] Last Admin: 10/29/19 08:22 Dose: 50 mg Miscellaneous Medication (Pharmacy To Dose) 1 each IVPB PRN PRN PRN Reason: Pharmacy to dose Ondansetron HCl (Zofran Odt) 4 mg PO Q6H PRN PRN Reason: Nausea/Vomiting Last Admin: 10/29/19 16:19 Dose: 4 mg Ondansetron HCl (Zofran) 4 mg IVP Q6H PRN PRN Reason: Nausea/Vomiting Last Admin: 10/28/19 07:42 Dose: 4 mg Senna/Docusate Sodium (Senokot S) 1 tab PO BID [facility] Last Admin: 10/29/19 21:09 Dose: Not Given Sodium Chloride (Flush - Normal Saline) 10 ml IVF Q12HR [facility] Last Admin: 10/29/19 23:00 Dose: Not Given Sodium Chloride (Flush - Normal Saline) 10 ml IVF PRN PRN PRN Reason: Saline Flush Vital Signs & Weight: Vital Signs Temp Pulse Resp BP BP Pulse Ox 10/30/19 07:53 98.2 F 57 L 16 151/89 H 98 10/30/19 07:45 63 18 97 10/30/19 04:00 98.1 F 69 16 184/96 H 97 10/30/19 00:59 97.9 F 62 14 182/91 H 93 L 10/29/19 22:36 62 14 97 Weight 278 lb 3.574 oz - Physical Exam General: alert & oriented x3 HEENT: mucus membranes moist Neck: supple neck Cardiac: no murmur, regular rate, regular rhythm Lungs: normal breath sounds Neuro: grossly intact Abdomen: soft, no masses Extremities: no cyanosis - Labs Result Diagrams: 10/30/19 04:42 10/30/19 04:42 Troponin/CKMB Troponin I 0.021 ng/mL (< 0.028) 10/26/19 02:58 - Assessment/Plan Assessment/Plan: CVA PAF KENDRA Obesity Add NOAC Low dose BB or CCB Outpatient sleep study weight loss Will follow as outpatient
--- NOTE | 2019-10-30 08:24 | CON ---
DATE OF CONSULTATION: 10/29/2019 CONSULTING PHYSICIAN: Hospitalist Service. IMPRESSION: 1. Transient right-sided weakness and dysarthria. 2. Intermittent atrial fibrillation. 3. Hypertension. 4. Noncompliance secondary to financial issues. PLAN: 1. Anticoagulation as per Cardiology's recommendations. 2. Blood pressure control. 3. Statin of your choice. HISTORY OF PRESENT ILLNESS: Ms. Anderson is a 54-year-old woman with a past history of hypertension, obesity. She has not been compliant with medications secondary to financial issues. She presented with dysarthria and right-sided weakness. Her CT angiogram did not show any proximal occlusions. Her echocardiogram shows a normal ejection fraction of 55% to 60%. She was initially in atrial fibrillation with a rapid ventricular response. She spontaneously converted to a normal sinus rhythm. She received tPA. A followup CT scan done today was unremarkable for any hemorrhage or ischemic changes. She denies any ongoing focal symptoms. PAST MEDICAL HISTORY: Hypertension. ALLERGIES: SHRIMP. SOCIAL HISTORY: No tobacco or drug use other than marijuana. FAMILY HISTORY: Noncontributory. MEDICINES: None. REVIEW OF SYSTEMS: 10 system review of systems is otherwise negative. PHYSICAL EXAMINATION: VITAL SIGNS: Blood pressure 178/78, pulse 84, in sinus rhythm. HEENT: Pupils equal and reactive. Conjunctivae clear. Oropharynx clear. NECK: Supple. EXTREMITIES: No cyanosis, clubbing, or edema. NEUROLOGIC: She is alert and appropriate. Her speech is fluent and clear. Cranial nerves were intact. Motor exam shows equal strength. Sensations intact to light touch. Gait was not testable. No tremor or dysmetria is present. SUMMARY: This is a middle-aged woman with hypertension and intermittent atrial fibrillation, who presented with some transient deficits. She appears to be doing well at this point. She will be 24 hours out later this afternoon. Anticoagulation and blood pressure control are underway. Job ID: [id number]
[2019-10-30] MEDS: Digoxin 0.125 MG TAB PO SCH (08:31)
[2019-10-30] MEDS: Famotidine 20 MG TAB PO SCH ×2 (08:32→23:07)
[2019-10-30] MEDS: Losartan 25 MG TAB PO SCH (08:32)
[2019-10-30] MEDS: Senokot S 8.6-50 MG TAB PO SCH ×2 (08:32→23:08)
[2019-10-30] MEDS: Insulin Regular 300 UNITS/3 ML VIAL SC SCH ×2 (08:32→11:11)
[2019-10-30 08:44] LABS: Hemoglobin 12.8 g/dL (12.0-16.0); Mean Corpuscular HGB CONC 33.2 g/dL (32.0-36.0); Mean Corpuscular Hemoglobin 31.3 pg (27.0-31.0); Mean Corpuscular Volume 94.2 fL (78.0-98.0); Mean Platelet Volume 8.9 fL (7.4-10.4); Platelet Count 321 thou/uL (130-400); RBC Distribution Width 12.6 % (11.5-14.5)
[2019-10-30 08:57] LABS: Anion Gap 12 mmol/L (10-20); BUN (Urea Nitrogen) 14 mg/dL (9.8-20.1); Calc. Creatinine Clearance 132 mL/min (70-130); Calcium 8.7 mg/dL (7.8-10.44); Carbon Dioxide 27 mmol/L (22-29); Chloride 102 mmol/L (98-107); Estimated GFR-MDRD 60; Glucose 182 mg/dL (70-105); Potassium 4.3 mmol/L (3.5-5.1); Sodium 137 mmol/L (136-145)
[2019-10-30 10:12] LABS: Band 5 % (5-11); Eosinophils 3 % (0-10); Lymphocytes 29 % (21-51); MDiff Complete? YES; Monocytes 4 % (0-10); Myelocyte 2 % (0-0); Neutrophil 57 % (42-75); RBC Morphology Normal
[2019-10-30] MEDS: hydrALAZINE 20 MG/ML VIAL SLOW IVP PRN ×2 (11:38→23:24)
[2019-10-30] MEDS: Ibuprofen 600 MG TAB PO PRN ×2 (12:26→23:07)
--- NOTE | 2019-10-30 12:33 | PDOC.HOSPP ---
- Subjective Encounter Date: 10/30/19 Encounter Time: 12:30 Subjective: MMsLandon Anderson was seen today in follow-up of AFIB and DM. She does not have any new complaints. - Objective Vital Signs & Weight: Vital Signs (12 hours) Temp Pulse Pulse Pulse Resp BP BP 10/30/19 12:09 10/30/19 11:51 98.2 F 70 16 10/30/19 11:38 64 217/110 H 10/30/19 09:22 88 71 121/96 H 10/30/19 08:31 63 10/30/19 07:53 98.2 F 57 L 16 10/30/19 07:45 63 18 10/30/19 04:00 98.1 F 69 16 10/30/19 00:59 97.9 F 62 14 BP BP BP Pulse Ox 10/30/19 12:09 189/88 H 10/30/19 11:51 199/105 H 97 10/30/19 11:38 10/30/19 09:22 149/98 H 10/30/19 08:31 10/30/19 07:53 151/89 H 98 10/30/19 07:45 97 10/30/19 04:00 184/96 H 97 10/30/19 00:59 182/91 H 93 L Weight Weight 278 lb 3.574 oz Most Recent Monitor Data Heart Rate from ECG 67 NIBP 167/85 NIBP BP-Mean 112 Respiration from ECG 18 SpO2 96 I&O: 10/29/19 10/30/19 10/31/19 06:59 06:59 06:59 Intake Total 1080 240 237 Output Total 2100 300 Balance -1020 -60 237 Result Diagrams: 10/30/19 04:42 10/30/19 04:42 Additional Labs: Accuchecks 10/30/19 10/30/19 10/29/19 10:53 06:12 21:14 POC Glucose 95 171 H 136 H 10/29/19 10/29/19 18:44 16:17 POC Glucose 123 H 107 Hospitalist ROS - Medication Medications: Active Medications Generic Name Dose Route Start Last Admin Trade Name Freq PRN Reason Stop Dose Admin Albuterol Sulfate 1.25 mg 10/26/19 07:00 10/30/19 07:45 Albuterol Sulfate NEB 1.25 mg [id number] INEZ Administration Digoxin 0.125 mg 10/27/19 09:00 10/30/19 08:31 Lanoxin PO 0.125 mg DAILY INEZ Administration Famotidine 20 mg 10/26/19 09:00 10/30/19 08:32 Pepcid PO 20 mg BID INEZ Administration Hydralazine HCl 10 mg 10/28/19 13:54 10/30/19 11:38 Apresoline SLOW IVP 10 mg Q4H PRN Administration SBP > 180 or DBP > 105 Ibuprofen 600 mg 10/26/19 09:33 10/30/19 12:26 Motrin PO 600 mg Q6H PRN Administration Mild Pain (1-3) Insulin Human Regular 0 units 10/26/19 17:03 10/30/19 06:46 Humulin R SC 2 unit .MILD SLIDING SCALE PRN Administration Mild Correctional Scale Labetalol HCl 10 mg 10/28/19 13:54 10/29/19 11:09 Normodyne SLOW IVP 10 mg Q10MIN PRN Administration SBP > 180 or DBP > 105 Ondansetron HCl 4 mg 10/26/19 02:29 10/29/19 16:19 Zofran Odt PO 4 mg Q6H PRN Administration Nausea/Vomiting Ondansetron HCl 4 mg 10/26/19 02:29 10/28/19 07:42 Zofran IVP 4 mg Q6H PRN Administration Nausea/Vomiting Senna/Docusate Sodium 1 tab 10/27/19 21:00 10/30/19 08:32 Senokot S PO Not Given BID INEZ Sodium Chloride 10 ml 10/28/19 21:00 10/30/19 08:32 Flush - Normal Saline IVF 10 ml Q12HR INEZ Administration - Exam Eye: PERRL Heart: no murmur, no gallops, no rubs, normal peripheral pulses, irregular Respiratory: CTAB, no wheezes, no rales, no ronchi, normal chest expansion, no tachypnea, normal percussion Gastrointestinal: soft, non-tender, non-distended, normal bowel sounds, no palpable masses, no hepatomegaly Extremities: no cyanosis, no clubbing, no edema Hosp A/P (1) Acute CVA (cerebrovascular accident) Code(s): I63.9 - CEREBRAL INFARCTION, UNSPECIFIED Status: Acute (2) PAF (paroxysmal atrial fibrillation) Code(s): I48.0 - PAROXYSMAL ATRIAL FIBRILLATION Status: Acute (3) DM2 (diabetes mellitus, type 2) Status: Acute (4) COPD (chronic obstructive pulmonary disease) Status: Chronic (5) HTN (hypertension) Code(s): I10 - ESSENTIAL (PRIMARY) HYPERTENSION Status: Chronic (6) Morbid obesity with BMI of 40.0-44.9, adult Code(s): E66.01 - MORBID (SEVERE) OBESITY DUE TO EXCESS CALORIES; Z68.41 - BODY MASS INDEX (BMI) 40.0-44.9, ADULT Status: Chronic - Plan * Acute CVA post TPA- her deficits have completely resolved * HTN- blood pressure is elevated- will change Losartan to Lisinopril/HCTZ due to cost, and patient has taken this before * Will also add Carvediolol * AFIB- she is currently in sinus- will add Eliquis * COPD- stable * DM- will change to 70/30 insulin for cost purposes * Hopefully home today
[2019-10-30] MEDS: HumuLIN 70/30 (300 UNITS/3 ML VIAL) SC SCH (17:40)
[2019-10-30] MEDS: Lisinopril/Hydrochlorothiazide 20/25 mg Tablet PO SCH (17:42)
[2019-10-30] MEDS: Carvedilol 3.125 MG TAB PO SCH (17:42)
[2019-10-30] MEDS ORDERED: Atorvastatin Calcium 20 MG TAB PO SCH (21:00)
[2019-10-30] MEDS: Apixaban 5 MG TAB PO SCH (23:08)
[2019-10-31] MEDS: Albuterol Sulfate 1.25 MG/3 ML NEB NEB SCH ×2 (06:43→14:20)
--- NOTE | 2019-10-31 08:40 | PDOC.CPN ---
- Subjective Date: 10/31/19 Time: 08:38 Interval history: Doing well. NO complaints - Objective Allergies/Adverse Reactions: Allergies Allergy/AdvReac Type Severity Reaction Status Date / Time shrimp Allergy Verified 10/26/19 00:10 Visit Medications: Current Medications Albuterol Sulfate (Albuterol Sulfate) 1.25 mg NEB [id number] [facility] Last Admin: 10/31/19 06:43 Dose: 1.25 mg Apixaban (Eliquis) 5 mg PO BID [facility] Last Admin: 10/30/19 23:08 Dose: 5 mg Atorvastatin Calcium (Lipitor) 20 mg PO HS [facility] Last Admin: 10/30/19 23:07 Dose: 20 mg Calcium Carbonate (Tums) 1,000 mg PO Q4H PRN PRN Reason: Heartburn or Indigestion Carvedilol (Coreg) 3.125 mg PO BID-[facility] Last Admin: 10/30/19 17:42 Dose: 3.125 mg Digoxin (Lanoxin) 0.125 mg PO DAILY [facility] Last Admin: 10/30/19 08:31 Dose: 0.125 mg Famotidine (Pepcid) 20 mg PO BID [facility] Last Admin: 10/30/19 23:07 Dose: 20 mg Lisinopril/HCTZ (Prinizide 20-25) 1 tab PO 1800 [facility] Last Admin: 10/30/19 17:42 Dose: 1 tab Hydralazine HCl (Apresoline) 10 mg SLOW IVP Q4H PRN PRN Reason: SBP > 180 or DBP > 105 Last Admin: 10/30/19 23:24 Dose: 10 mg Ibuprofen (Motrin) 600 mg PO Q6H PRN PRN Reason: Mild Pain (1-3) Last Admin: 10/30/19 23:07 Dose: 600 mg Insulin Human Isoph/Insulin Regular (Humulin 70/30) 25 units SC BID-AC [facility] Last Admin: 10/30/19 17:40 Dose: 25 unit Insulin Human Regular (Humulin R) 0 units SC .MILD SLIDING SCALE PRN PRN Reason: Mild Correctional Scale Last Admin: 10/30/19 06:46 Dose: 2 unit Labetalol HCl (Normodyne) 10 mg SLOW IVP Q10MIN PRN PRN Reason: SBP > 180 or DBP > 105 Last Admin: 10/29/19 11:09 Dose: 10 mg Ondansetron HCl (Zofran Odt) 4 mg PO Q6H PRN PRN Reason: Nausea/Vomiting Last Admin: 10/29/19 16:19 Dose: 4 mg Ondansetron HCl (Zofran) 4 mg IVP Q6H PRN PRN Reason: Nausea/Vomiting Last Admin: 10/28/19 07:42 Dose: 4 mg Senna/Docusate Sodium (Senokot S) 1 tab PO BID INEZ Last Admin: 10/30/19 23:08 Dose: Not Given Sodium Chloride (Flush - Normal Saline) 10 ml IVF Q12HR INEZ Last Admin: 10/30/19 23:08 Dose: 10 ml Sodium Chloride (Flush - Normal Saline) 10 ml IVF PRN PRN PRN Reason: Saline Flush Vital Signs & Weight: Vital Signs Temp Pulse Resp BP BP BP Pulse Ox 10/31/19 07:42 98 F 62 16 134/96 H 97 10/31/19 06:43 71 16 97 10/31/19 04:00 97.6 F 57 L 16 109/69 94 L 10/31/19 00:00 98.1 F 62 16 151/74 H 97 10/30/19 23:24 61 177/107 H 10/30/19 22:55 97 10/30/19 22:50 97 Weight 278 lb 3.574 oz - Physical Exam General: alert & oriented x3 HEENT: mucus membranes moist Neck: supple neck, midline trachea Cardiac: regular rate and rhythm, no murmur Lungs: clear to auscultation, normal breath sounds Abdomen: soft, non-tender - Labs Result Diagrams: 10/30/19 04:42 10/30/19 04:42 Troponin/CKMB Troponin I 0.021 ng/mL (< 0.028) 10/26/19 02:58 - Telemetry Sinus rhythms and dysrhythmias: sinus rhythm - Assessment/Plan Assessment/Plan: Afib CVA Obesity KENDRA Will supply samples of eliquis HR, BP stable Ok for DC from CV standpoint with outpatient fu
[2019-10-31] MEDS: Famotidine 20 MG TAB PO SCH (08:56)
[2019-10-31] MEDS: Apixaban 5 MG TAB PO SCH (08:56)
[2019-10-31] MEDS: Carvedilol 3.125 MG TAB PO SCH ×2 (08:56→17:19)
[2019-10-31] MEDS: Senokot S 8.6-50 MG TAB PO SCH (08:56)
[2019-10-31] MEDS: Digoxin 0.125 MG TAB PO SCH (08:56)
[2019-10-31] MEDS: HumuLIN 70/30 (300 UNITS/3 ML VIAL) SC SCH ×2 (08:56→17:18)
[2019-10-31] MEDS: Ibuprofen 600 MG TAB PO PRN (11:38)
[2019-10-31 11:57] VITALS: BP 133/76; TEMP 97.8
[2019-10-31] MEDS: Lisinopril/Hydrochlorothiazide 20/25 mg Tablet PO SCH (17:18)
--- NOTE | 2019-11-01 07:29 | DIS ---
DATE OF ADMISSION: 10/25/2019 DATE OF DISCHARGE: 10/31/2019 DISCHARGE DISPOSITION: Home. DISCHARGE DIAGNOSES: 1. Acute on chronic respiratory failure with hypoxemia. 2. Acute cerebrovascular accident. 3. Atrial fibrillation. 4. New-onset diabetes mellitus. 5. Hypertension. 6. Morbid obesity. 7. Chronic obstructive pulmonary disease. DISCHARGE MEDICATIONS: Include, 1. Lisinopril/hydrochlorothiazide 20/25 one tablet daily. 2. Novolin 70/30 of 25 units twice daily. 3. Lanoxin 0.125 mg daily. 4. Carvedilol 3.125 mg twice a day. 5. Lipitor 20 mg at bedtime. 6. Eliquis 5 mg twice daily. 7. Albuterol nebs q.8 hours as needed. CODE STATUS: Full code. ALLERGIES: TO SHRIMP. IMAGING DONE DURING THE HOSPITAL STAY: The patient had a CT scan of the brain showing no acute intracranial abnormalities. The patient had a CT angio of the [place] showing no evidence of any cerebral artery stenosis or occlusion. The patient had an MRI of the brain showing no evidence of any acute intracranial abnormality as well as a repeat CT scan, which was negative. HOSPITAL COURSE: Ms. Anderson is a pleasant 54-year-old female, who was admitted to the hospital with shortness of breath and palpitations. She was found to be in acute on chronic respiratory failure, as well as she was found to be in atrial fibrillation with rapid ventricular response. She was admitted to the hospital and started on a Cardizem drip. Echocardiogram was done and showed an EF of 50% to 55%. The left atrium was mildly dilated. The patient also underwent nuclear stress test, which was negative for any reversible ischemia. During the course of her hospital stay, she developed a sudden onset of right-sided weakness and a facial droop. A stroke code was called and she underwent tPA during her hospital stay. She was placed in the ICU and she had complete resolution of all of her symptoms. She was monitored in the ICU overnight. She also was diagnosed with diabetes during this hospital stay and was started on insulin. She was seen by the dietitian and given information on diabetes management. The patient is uninsured and therefore Case Management was consulted to treater helper in her discharge planning and help with her medications. Also, Case Management will be helping with scheduling a followup appointment for her as well. Job ID: [id number]
== END 2019-10-31 18:08 | disposition home or self-care (01) | DRG 308 ==
LOC: ERS 20:07 → 2NO 23:52 → CCU 10-28 13:33 → 2SE 10-29 16:37
PROVIDERS: ADMIT Family Medicine; ATTEND Family Medicine
DX: I48.0 Paroxysmal atrial fibrillation (principal); I63.9 Cerebral infarction, unspecified; Z68.41 Body mass index [BMI] 40.0-44.9, adult; B18.1 Chronic viral hepatitis B without delta-agent; N17.9 Acute kidney failure, unspecified; G81.91 Hemiplegia, unspecified affecting right dominant side; I12.9 Hypertensive chronic kidney disease with stage 1 through stage 4 chronic kidney disease, or unspecified chronic kidney disease; N18.2 Chronic kidney disease, stage 2 (mild); J44.9 Chronic obstructive pulmonary disease, unspecified; F43.10 Post-traumatic stress disorder, unspecified; F41.0 Panic disorder [episodic paroxysmal anxiety]; E66.01 Morbid (severe) obesity due to excess calories; E05.80 Other thyrotoxicosis without thyrotoxic crisis or storm; E11.22 Type 2 diabetes mellitus with diabetic chronic kidney disease; G47.33 Obstructive sleep apnea (adult) (pediatric); F32.9 Major depressive disorder, single episode, unspecified; R50.9 Fever, unspecified; Z90.710 Acquired absence of both cervix and uterus; Z87.891 Personal history of nicotine dependence; Z91.013 Allergy to seafood; Z86.73 Personal history of transient ischemic attack (TIA), and cerebral infarction without residual deficits; Z95.5 Presence of coronary angioplasty implant and graft; Z79.51 Long term (current) use of inhaled steroids; Z91.14 Patient's other noncompliance with medication regimen; R29.810 Facial weakness
CPT/HCPCS: 36415; 36416; 70450; 70496; 70498; 70551; 78452; 80048; 80061; 81001; 83036; 83735; 83880; 84439; 84443; 84484; 85007; 85025; 85027; 85379; 85610; 85730; 90471; 90686; 93005; 93010; 93017; 93306; 94640; 96365; 96375; A9500; G0008; J0360; J1650; J1815; J1885; J1956; J2405; J2785; J2930; J2997; J3030; J7512; Q0162; Q9967

== ENCOUNTER 2023-11-21 12:57 | Emergency (ER) | payer OTHER, MEDICAID | END 2023-11-21 14:58 | disposition left against medical advice (07) | LOC: ERS 12:57 | DX: Z53.21 Procedure and treatment not carried out due to patient leaving prior to being seen by health care provider (principal) ==

== ENCOUNTER 2023-12-06 08:26 | Day surgery (SDC) | payer OTHER ==
[2023-11-29 14:45] VITALS: BMI 33.4
[2023-11-29 15:29] LABS: Mean Corpuscular HGB CONC 33.3 g/dL (32.0-36.0); Mean Corpuscular Hemoglobin 29.9 pg (27.0-33.0); Mean Corpuscular Volume 89.8 fl (81.6-98.3); Mean Platelet Volume 11.2 fl (7.4-10.4); Platelet Count 331 10x3/uL (150-450); RBC Distribution Width 13.8 % (11.5-14.5); Red Blood Cell (RBC) Count 4.01 10x6/uL (3.90-5.03)
[2023-11-29 15:57] LABS: Prothrombin Time 10.8 sec (9.5-12.1)
[2023-11-29 16:07] LABS: Anion Gap 12 mmol/L (10-20); BUN (Urea Nitrogen) 18 mg/dL (9.8-20.1); Calc. Creatinine Clearance 78 mL/min (70-130); Calcium 8.8 mg/dL (7.8-10.44); Carbon Dioxide 27 mmol/L (22-29); Chloride 107 mmol/L (98-107); Estimated GFR 55; Glucose 73 mg/dL (70-105); Sodium 141 mmol/L (136-145)
[2023-12-06] MEDS ORDERED: Heparin 10,000 UNITS/ 10 ML VIAL ONE (08:30)
[2023-12-06] MEDS ORDERED: Protamine Sulfate 50 MG/5 ML VIAL ONE (08:30)
[2023-12-06] MEDS ORDERED: Heparin 25,000 units/D5W 500 ML ONE (08:31)
[2023-12-06] MEDS ORDERED: Glycopyrrolate 0.2 MG/ML 5 ML SYRINGE ONE (11:01)
[2023-12-06] MEDS ORDERED: Dexamethasone 20 MG/5 ML VIAL ONE (11:01)
[2023-12-06] MEDS ORDERED: ePHEDrine Sulfate 50 MG/10 ML VIAL ONE (11:01)
[2023-12-06] MEDS ORDERED: Rocuronium Bromide 10 MG/ML (10ML VIAL) ONE (11:01)
[2023-12-06] MEDS ORDERED: PROPOFOL 200 MG/20 ML VIAL ONE (11:01)
[2023-12-06] MEDS ORDERED: Lidocaine 1% PF 5 ML VIAL ONE (11:01)
[2023-12-06] MEDS ORDERED: Ondansetron PF 4 MG/2 ML Vial ONE (11:01)
[2023-12-06] MEDS ORDERED: PHENYLEPHRINE-NS 100 MCG/ML 10 ML SYRINGE ONE (11:01)
[2023-12-06] MEDS ORDERED: fentaNYL 50 mcg/mL 1 mL Vial ONE ×2 (11:12→13:45)
[2023-12-06] MEDS ORDERED: SUGAMMADEX SODIUM 200 MG/2 ML VIAL ONE (13:11)
== END 2023-12-06 16:35 | disposition home or self-care (01) ==
LOC: SDC 08:26
PROVIDERS: ATTEND Internal Medicine Cardiovascular Disease
PROC: 02583ZZ Destruction of Conduction Mechanism, Percutaneous Approach (ICD-10-PCS; principal; 2023-12-06)
DX: I48.0 Paroxysmal atrial fibrillation (principal); G47.33 Obstructive sleep apnea (adult) (pediatric); E11.9 Type 2 diabetes mellitus without complications; J44.9 Chronic obstructive pulmonary disease, unspecified; E78.5 Hyperlipidemia, unspecified; F41.9 Anxiety disorder, unspecified; F43.10 Post-traumatic stress disorder, unspecified; Z79.899 Other long term (current) drug therapy; Z86.73 Personal history of transient ischemic attack (TIA), and cerebral infarction without residual deficits; Z87.891 Personal history of nicotine dependence; Z79.01 Long term (current) use of anticoagulants; Z90.710 Acquired absence of both cervix and uterus; Z91.013 Allergy to seafood; Z88.8 Allergy status to other drugs, medicaments and biological substances
CPT/HCPCS: 36416; 80048; 85027; 85347; 85610; 93005; 93010; 93656; C1732; C1759; C1760; C1893; C1894; C2630; J1644; J2720; J3010

== ENCOUNTER 2023-12-14 12:25 | Outpatient (CLI) | payer OTHER | END 2023-12-14 12:26 | disposition home or self-care (01) | LOC: RAD 12:25 | PROVIDERS: ATTEND Internal Medicine | DX: R06.00 Dyspnea, unspecified (principal); R91.8 Other nonspecific abnormal finding of lung field | CPT/HCPCS: 71046 ==

== ENCOUNTER 2024-03-22 12:30 | Outpatient (CLI) | payer OTHER | END 2024-03-22 12:31 | disposition home or self-care (01) | LOC: BICCT 12:30 | PROVIDERS: ATTEND Internal Medicine | DX: Z12.2 Encounter for screening for malignant neoplasm of respiratory organs (principal); Z87.891 Personal history of nicotine dependence; J96.11 Chronic respiratory failure with hypoxia; I25.10 Atherosclerotic heart disease of native coronary artery without angina pectoris; J84.10 Pulmonary fibrosis, unspecified | CPT/HCPCS: 71271 ==

== ENCOUNTER 2025-06-15 19:40 | Inpatient (IN) | payer MEDICAID ==
[2025-06-15] MEDS ORDERED: Dextrose 50% Abboject 50 ML SYRINGE SLOW IVP PRN (21:15)
[2025-06-15] MEDS ORDERED: Acetaminophen 325 MG TAB PO PRN (21:15)
[2025-06-15] MEDS ORDERED: Glucagon 1 MG/ML KIT IM PRN (21:15)
[2025-06-15] MEDS ORDERED: Melatonin 3 MG TAB PO PRN (21:15)
[2025-06-15] MEDS ORDERED: Calcium Carbonate 500 MG ChewTAB PO PRN (21:15)
[2025-06-15] MEDS ORDERED: Ondansetron PF 4 MG/2 ML Vial IVP PRN (21:15)
[2025-06-15] MEDS ORDERED: Senokot S 8.6-50 MG TAB PO PRN (21:15)
[2025-06-15] MEDS ORDERED: Albuterol 1.25 MG (3 mL) NEB NEB PRN (21:27)
[2025-06-15 22:12] LABS: #Basophils 0.03 10x3/uL (0.0-0.2); #Eosinophils 0.03 10x3/uL (0.0-0.7); #Monocytes 0.90 10x3/uL (0.11-0.59); #Neutrophils 6.81 10x3/uL (1.40-6.50); %Basophils 0.3 % (0.0-1.0); %Eosinophils 0.3 % (0.0-10.0); %Lymphocytes 23.4 % (21.0-51.0); %Monocytes 8.7 % (0.0-10.0); %Neutrophils 66.0 % (42.0-75.0); Hematocrit 36.3 % (36.0-47.0); Hemoglobin 11.8 g/dL (12.0-16.0); Mean Corpuscular Hemoglobin 31.7 pg (27.0-31.0); Mean Corpuscular Volume 97.6 fL (78.0-98.0); Platelet Count 354 10x3/uL (130-400); Red Blood Cell (RBC) Count 3.72 mill/uL (4.20-5.40); White Blood Cell (WBC) Count 10.32 10x3/uL (4.8-10.8)
[2025-06-15 22:49] LABS: ALT (SGPT) 10 U/L (Less than 34); AST (SGOT) 31 U/L (11-34); Albumin 3.1 g/dL (3.1-4.5); Alkaline Phosphatase 74 U/L (40-110); Anion Gap 17 mmol/L (10-20); BUN (Urea Nitrogen) 19 mg/dL (9.8-20.1); Bilirubin, Total 0.6 mg/dL (0.3-1.2); Calc. Creatinine Clearance 0 mL/min (70-130); Calcium 8.6 mg/dL (7.8-10.44); Carbon Dioxide 17 mmol/L (22-29); Chloride 107 mmol/L (98-107); Globulin 2.7 g/dL (2.4-3.5); Glucose 82 mg/dL (70-105); Potassium 4.0 mmol/L (3.5-5.1); Sodium 137 mmol/L (136-145)
[2025-06-15 23:37] VITALS: BMI 32.1
[2025-06-16 00:52] LABS: #Basophils 0.04 10x3/uL (0.0-0.2); #Eosinophils 0.05 10x3/uL (0.0-0.7); #Monocytes 0.90 10x3/uL (0.11-0.59); #Neutrophils 6.82 10x3/uL (1.40-6.50); %Basophils 0.4 % (0.0-1.0); %Eosinophils 0.5 % (0.0-10.0); %Lymphocytes 24.8 % (21.0-51.0); %Monocytes 8.6 % (0.0-10.0); %Neutrophils 64.7 % (42.0-75.0); Hematocrit 35.9 % (36.0-47.0); Hemoglobin 11.8 g/dL (12.0-16.0); Mean Corpuscular Hemoglobin 31.6 pg (27.0-31.0); Mean Corpuscular Volume 96.2 fL (78.0-98.0); Platelet Count 363 10x3/uL (130-400); Red Blood Cell (RBC) Count 3.73 mill/uL (4.20-5.40); White Blood Cell (WBC) Count 10.52 10x3/uL (4.8-10.8)
[2025-06-16] MEDS: Enoxaparin 100 MG (1 mL) SYRINGE SC SCH ×2 (00:59→09:06)
[2025-06-16 01:05] LABS: Anion Gap 15 mmol/L (10-20); BUN (Urea Nitrogen) 19 mg/dL (9.8-20.1); Calc. Creatinine Clearance 112 mL/min (70-130); Calcium 8.5 mg/dL (7.8-10.44); Carbon Dioxide 20 mmol/L (22-29); Cardiac Risk 2.5 (Less than 4.5); Chloride 107 mmol/L (98-107); Cholesterol 129 mg/dl (< 200 Desired); Glucose 82 mg/dL (70-105); HDL Cholesterol 52 mg/dL (>60 Neg Risk); LDL Cholesterol, Calculated 65 mg/dL; Potassium 3.7 mmol/L (3.5-5.1); Sodium 138 mmol/L (136-145); Triglycerides 62 mg/dL (Less than 150)
[2025-06-16] MEDS: Mometasone 200 MCG/Formoterol 5 MCG 120 PUFF INHALER INH SCH ×2 (07:52→19:20)
[2025-06-16] MEDS ORDERED: Fioricet 325/50/40 mg Tablet PO PRN (08:53)
[2025-06-16] MEDS ORDERED: Albuterol 2.5 MG (3 mL) NEB NEB PRN (08:53)
[2025-06-16] MEDS ORDERED: Non-Formulary Item 1 EACH (Pregabalin [Lyrica] 100 MG Cap) PO PRN (08:53)
[2025-06-16] MEDS ORDERED: Buprenorphine 8mg/Naloxone 2mg per 1 FILM SL PRN (08:53)
[2025-06-16] MEDS ORDERED: DULoxetine 20 MG CAP PO SCH (09:00)
[2025-06-16] MEDS ORDERED: Apixaban 5 MG TAB PO SCH (09:00)
[2025-06-16] MEDS ORDERED: Gabapentin 300 MG CAP PO SCH (09:00)
[2025-06-16] MEDS ORDERED: Enoxaparin 40 MG (0.4 mL) SYRINGE SC SCH (09:00)
[2025-06-16] MEDS ORDERED: Non-Formulary Item 1 EACH (Lisinopril [Lisinopril] 30 MG Tablet) PO SCH (09:00)
[2025-06-16] MEDS: Pregabalin 50 MG CAP PO SCH (09:07)
[2025-06-16] MEDS: Pantoprazole 40 MG DR.TAB PO SCH (09:07)
[2025-06-16] MEDS: Aspirin 81 mg Enteric Coated Tablet PO SCH (09:08)
[2025-06-16] MEDS ORDERED: Albuterol 200 PUFF INH INH PRN (09:09)
[2025-06-16] MEDS: DULoxetine 20 MG CAP PO SCH (09:09)
[2025-06-16] MEDS: Lisinopril 20 MG TAB PO SCH (09:09)
[2025-06-16] MEDS: Metoprolol Succinate XL 25 MG ER.TAB PO SCH (09:41)
[2025-06-16] MEDS: Metoprolol Succinate XL 100 MG ER.TAB PO SCH (09:54)
[2025-06-16] MEDS: Famotidine/PF 20 mg/2ml Vial SLOW IVP SCH ×2 (13:48→20:52)
[2025-06-16 13:50] LABS: Cocaine Metabolite Screen Negative (Negative); THC/Cannabinoid Screen PRELIM POSITIVE (Negative); Tricyclic Screen Negative (Negative)
[2025-06-16] MEDS: Scopolamine 1 mg/72 hour Patch TD SCH ×2 (16:32→17:29)
[2025-06-16] MEDS: Acetaminophen/Codeine 30-300mg Tablet PO PRN (17:29)
[2025-06-16] MEDS: Famotidine 20 MG TAB PO SCH (20:51)
[2025-06-16] MEDS: Insulin Glargine 30 UNITS/0.3 ML VIAL SC SCH (21:06)
[2025-06-17 05:17] LABS: #Basophils 0.05 10x3/uL (0.0-0.2); #Eosinophils 0.05 10x3/uL (0.0-0.7); #Monocytes 0.86 10x3/uL (0.11-0.59); #Neutrophils 5.64 10x3/uL (1.40-6.50); %Basophils 0.5 % (0.0-1.0); %Eosinophils 0.5 % (0.0-10.0); %Lymphocytes 28.8 % (21.0-51.0); %Monocytes 9.1 % (0.0-10.0); %Neutrophils 59.5 % (42.0-75.0); Hematocrit 34.8 % (36.0-47.0); Hemoglobin 11.6 g/dL (12.0-16.0); Mean Corpuscular Hemoglobin 31.8 pg (27.0-31.0); Mean Corpuscular Volume 95.3 fL (78.0-98.0); Platelet Count 316 10x3/uL (130-400); Red Blood Cell (RBC) Count 3.65 mill/uL (4.20-5.40); White Blood Cell (WBC) Count 9.48 10x3/uL (4.8-10.8)
[2025-06-17 05:37] LABS: Anion Gap 15 mmol/L (10-20); BUN (Urea Nitrogen) 17 mg/dL (9.8-20.1); Calc. Creatinine Clearance 97 mL/min (70-130); Calcium 8.6 mg/dL (7.8-10.44); Carbon Dioxide 24 mmol/L (22-29); Chloride 107 mmol/L (98-107); Glucose 90 mg/dL (70-105); Potassium 3.7 mmol/L (3.5-5.1); Sodium 142 mmol/L (136-145)
[2025-06-17] MEDS: Ferrous Sulfate 325 MG TAB PO SCH (08:57)
[2025-06-17] MEDS: Metoprolol Succinate XL 25 MG ER.TAB PO SCH (08:57)
[2025-06-17 10:49] VITALS: BMI 32.1
[2025-06-18 05:31] LABS: #Basophils 0.07 10x3/uL (0.0-0.2); #Eosinophils 0.09 10x3/uL (0.0-0.7); #Monocytes 0.88 10x3/uL (0.11-0.59); #Neutrophils 4.32 10x3/uL (1.40-6.50); %Basophils 0.8 % (0.0-1.0); %Eosinophils 1.1 % (0.0-10.0); %Lymphocytes 32.7 % (21.0-51.0); %Monocytes 10.6 % (0.0-10.0); %Neutrophils 52.3 % (42.0-75.0); Hematocrit 35.5 % (36.0-47.0); Hemoglobin 11.5 g/dL (12.0-16.0); Mean Corpuscular Hemoglobin 31.0 pg (27.0-31.0); Mean Corpuscular Volume 95.7 fL (78.0-98.0); Platelet Count 291 10x3/uL (130-400); Red Blood Cell (RBC) Count 3.71 mill/uL (4.20-5.40); White Blood Cell (WBC) Count 8.28 10x3/uL (4.8-10.8)
[2025-06-18 05:55] LABS: Anion Gap 10 mmol/L (10-20); BUN (Urea Nitrogen) 16 mg/dL (9.8-20.1); Calc. Creatinine Clearance 75 mL/min (70-130); Calcium 8.7 mg/dL (7.8-10.44); Carbon Dioxide 29 mmol/L (22-29); Chloride 107 mmol/L (98-107); Glucose 90 mg/dL (70-105); Magnesium 1.9 mg/dL (1.6-2.6); Potassium 4.2 mmol/L (3.5-5.1); Sodium 142 mmol/L (136-145)
[2025-06-18] MEDS: Lisinopril 20 MG TAB PO SCH (09:29)
[2025-06-18 12:14] VITALS: BP 131/82; TEMP 98
== END 2025-06-18 13:15 | disposition home or self-care (01) | DRG 947 ==
LOC: OBSVTOIN 20:30 → OBS 20:30
PROVIDERS: ADMIT Hospitalist; ATTEND Hospitalist
DX: R53.83 Other fatigue (principal); I21.A1 Myocardial infarction type 2; R44.3 Hallucinations, unspecified; F41.9 Anxiety disorder, unspecified; I48.0 Paroxysmal atrial fibrillation; I10 Essential (primary) hypertension; E78.5 Hyperlipidemia, unspecified; F12.10 Cannabis abuse, uncomplicated; E11.9 Type 2 diabetes mellitus without complications; K59.00 Constipation, unspecified; F10.90 Alcohol use, unspecified, uncomplicated; J44.9 Chronic obstructive pulmonary disease, unspecified; Z79.01 Long term (current) use of anticoagulants; Z79.899 Other long term (current) drug therapy; Z98.890 Other specified postprocedural states; Z90.710 Acquired absence of both cervix and uterus; Z98.61 Coronary angioplasty status; Z87.891 Personal history of nicotine dependence; Z91.013 Allergy to seafood; R53.1 Weakness; R53.81 Other malaise; R79.89 Other specified abnormal findings of blood chemistry; R41.2 Retrograde amnesia; I48.91 Unspecified atrial fibrillation; I12.9 Hypertensive chronic kidney disease with stage 1 through stage 4 chronic kidney disease, or unspecified chronic kidney disease; N18.30 Chronic kidney disease, stage 3 unspecified; E11.22 Type 2 diabetes mellitus with diabetic chronic kidney disease; Z86.73 Personal history of transient ischemic attack (TIA), and cerebral infarction without residual deficits; Z79.4 Long term (current) use of insulin
CPT/HCPCS: 36415; 36416; 71045; 80048; 80053; 80061; 80306; 80307; 81001; 83036; 83605; 83690; 83735; 83880; 84100; 84443; 84484; 85025; 87400; 87426; 87428; 87633; 93005; 93010; 93306; 96374; J1650; J1815; J2060; J7120